=== PATIENT | female | born 2000 | race Caucasian/White ===

== ENCOUNTER 2022-01-28 18:13 | Emergency (ER) | payer MEDICAID, OTHER ==
[~2022-01-28] VITALS: Ht 187.9 cm; Wt 148.8 kg
[2022-01-28 18:45] LABS: CLARITY,URINE SL CLOUDY; COLOR,URINE DARK YELLOW
[2022-01-28 18:46] LABS: BILIRUBIN,URINE NEGATIVE (NEGATIVE); GLUCOSE, URINE (UA) NEGATIVE (NEGATIVE); KETONES,URINE NEGATIVE (NEGATIVE); LEUKOCYTE ESTERASE ,URINE NEGATIVE (NEGATIVE); NITRITE,URINE NEGATIVE (NEGATIVE); PROTEIN,URINE NEGATIVE (NEGATIVE)
[2022-01-28 18:52] LABS: BACTERIA,URINE MODERATE /HPF; CALCIUM OXALATE CRYSTALS,UR LARGE /LPF; SQUAMOUS EPITHELIAL CELL,UR 25-50 /HPF; WBC,URINE 0-2 /HPF
--- NOTE | 2022-01-28 18:58 | ED GU-Female ---
General Chief Complaint: OB > 20 WEEKS Stated Complaint: OB,CAN NOT URINATE,R SIDE ABD PAIN Nursing Triage Note: Patient reports she has had positional right sided abdominal pain for 2 days. She states she began having burning with urination last night. She states she is 7 months . Source: patient Exam Limitations: no limitations History of Present Illness Date Seen by Provider: Jan 28, 2022 Time Seen by Provider: 18:25 Initial Comments 21-year-old female patient G1, P0 at 28 weeks of gestation complaining of right side pain for the last 2 days as as an intermittent pain that getting worse with movement. Patient rated her pain 5/10 and denies anorexia, nausea and vomiting, fever or chills, diarrhea and constipation. Patient also complaining of unable to urinate since this morning and dysuria. 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 Patient complaining of dysuria and frequency. Patient denies vaginal bleeding and discharge and feels movement. Allergies and Home Medications Allergies Coded Allergies: Penicillins (Verified Allergy, Unknown, 01/28/22) clindamycin (Verified Allergy, Unknown, 01/28/22) Patient Home Medication List Home Medication List Reviewed: Yes Review of Systems Review of Systems Constitutional: no symptoms reported EENTM: no symptoms reported Respiratory: no symptoms reported Cardiovascular: no symptoms reported Gastrointestinal: see HPI Genitourinary: see HPI : Yes Expected Date of Delivery: May 01, 2022 LMP: Jul 13, 2021 Musculoskeletal: see HPI Skin: no symptoms reported Psychiatric/Neurological: No Symptoms Reported Endocrine: No Symptoms Reported Past Njgoeur-Lolbww-Jpnewm Hx Past Medical History Expected Date of Delivery: May 01, 2022 Last Menstrual Period: Jul 13, 2021 Physical Exam Vital Signs Vital Signs - First Documented 01/28/22 18:20 Temp 36.3 Pulse 94 Resp 16 B/P (MAP) 125/72 (89) Pulse Ox 97 O2 Delivery Room Air Capillary Refill : Less Than 3 Seconds Height, Weight, BMI Height: '" Weight: lbs. oz. kg; 42.00 BMI Method: General Appearance: WD/WN, no apparent distress, obese HEENT: PERRL/EOMI, normal ENT inspection Neck: non-tender, full range of motion Cardiovascular: normal peripheral pulses, regular rate, rhythm, no edema Respiratory: chest non-tender, lungs clear, normal breath sounds Gastrointestinal: normal bowel sounds, non tender, soft, no organomegaly, other (Gravid abdomen, heart rate 148, no McBurney sign or tenderness in right lower quadrant) Back: normal inspection, no CVA tenderness Neurologic/Psychiatric: alert, oriented x 3 Progress/Results/Core Measures Suspected Sepsis SIRS Temperature: Pulse: 94 Respiratory Rate: 16 Blood Pressure 125 /72 Mean: 89 Results/Orders Lab Results Laboratory Tests Test 01/28/22 18:20 Range/Units Urine Color DARK YELLOW Urine Clarity SL CLOUDY Urine pH 6.0 5-9 Urine Specific [place] >=1.030 1.016-1.022 Urine Protein NEGATIVE NEGATIVE Urine Glucose (UA) NEGATIVE NEGATIVE Urine Ketones NEGATIVE NEGATIVE Urine Nitrite NEGATIVE NEGATIVE Urine Bilirubin NEGATIVE NEGATIVE Urine Urobilinogen 0.2 < = 1.0 MG/DL Urine Leukocyte Esterase NEGATIVE NEGATIVE Urine RBC (Auto) NEGATIVE NEGATIVE Urine RBC NONE /HPF Urine WBC 0-2 /HPF Urine Squamous Epithelial Cells 25-50 H /HPF Urine Crystals PRESENT H /LPF Urine Calcium Oxalate Crystals LARGE H /LPF Urine Bacteria MODERATE H /HPF Urine Casts NONE /LPF Urine Mucus MODERATE H /LPF Urine Culture Indicated NO My Orders Orders - ALVIN BAHENA MD Ua Culture If Indicated (01/28/22 18:28) Vital Signs/I&O 01/28/22 01/28/22 18:20 19:12 Temp 36.3 36.3 Pulse 94 94 Resp 16 16 B/P (MAP) 125/72 (89) 125/72 Pulse Ox 97 97 O2 Delivery Room Air Room Air Capillary Refill : Less Than 3 Seconds Blood Pressure Mean: 89 Progress Note : Progress Note Evaluation of patient in ER showed 21-year-old female patient at 28 weeks of gestation with complaining of intermittent episodes of right-sided abdominal pain for the last 2 days with activity and decrease of urine output since this morning. Patient works out at hot weather today. Patient had unremarkable physical exam. UA showed contamination. Patient was able to urinate after drinking water in the ER. 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 Patient advised to take Tylenol as needed for pain. Patient advised to return to ER as needed Departure Impression Primary Impression: Broad ligament pain Additional Impression: Dysuria Disposition: 01 HOME, SELF-CARE Condition: Stable Departure-Patient Inst. Decision time for Depature: 19:08 Referrals: SILVIO SCHULTZ MD (PCP/Family) Primary Care Physician Patient Instructions: Dysuria, Adult (DC) Add. Discharge Instructions: Drink plenty of liquid May take Tylenol as needed for pain Follow-up with your [employer] or return to ER as needed All discharge instructions reviewed with patient and/or family. Voiced understanding. ALVIN BAHENA MD Jan 28, 2022 18:58
[2022-01-28 19:12] VITALS: BP 125/72
== END 2022-01-28 19:15 | disposition home or self-care (01) ==
LOC: ER FS 18:17
DX: O26.893 Other specified pregnancy related conditions, third trimester (principal); R30.0 Dysuria; R10.2 Pelvic and perineal pain; O99.213 Obesity complicating pregnancy, third trimester; Z3A.28 28 weeks gestation of pregnancy; Z28.310 Unvaccinated for COVID-19
CPT/HCPCS: 81000

== ENCOUNTER 2022-02-07 22:12 | Outpatient (CLI) | payer MEDICAID ==
[~2022-02-07] VITALS: Ht 183.5 cm; Wt 168.8 kg
[2022-02-07 22:28] VITALS: BP 134/64
[2022-02-07 22:30] VITALS: BP 134/64
[2022-02-07 22:47] LABS: BILIRUBIN,URINE NEGATIVE (NEGATIVE); CLARITY,URINE CLEAR; COLOR,URINE ORANGE; GLUCOSE, URINE (UA) NEGATIVE (NEGATIVE); KETONES,URINE NEGATIVE (NEGATIVE); LEUKOCYTE ESTERASE ,URINE NEGATIVE (NEGATIVE); NITRITE,URINE NEGATIVE (NEGATIVE); PH,URINE 6.5 (5-9); PROTEIN,URINE NEGATIVE (NEGATIVE)
[2022-02-07 22:56] LABS: BACTERIA,URINE MODERATE /HPF
[2022-02-07 22:59] VITALS: BP 134/64
[2022-02-07] MEDS ORDERED: LIDOCAINE 1% INJ 20 ML VIAL ONE (23:09)
[2022-02-07] MEDS ORDERED: cefTRIAXone 1,000 MG VIAL ONE (23:09)
[2022-02-07] MEDS ORDERED: CEPH500T PO (23:14)
[2022-02-07] MEDS ORDERED: cefTRIAXone 500 MG/5 ML ML IM ONE (23:15)
[2022-02-07] MEDS ORDERED: LIDOCAINE 1% INJ 20 ML VIAL INJ ONE (23:15)
[2022-02-07] MEDS ORDERED: PREN-51 PO (23:18)
[2022-02-07 23:32] VITALS: BP 130/64
--- NOTE | 2022-02-10 08:09 | Physician Query-Final Dx ---
Clinic Account Progress/Dx Physician Query: Please give diagnosis Please inclue # weeks gestation Date of Service Feb 07, 2022 at 22:12 [facility],JulFeb 10, 2022 08:09
== END 2022-02-07 23:32 ==
LOC: WSo 22:12
PROVIDERS: ATTEND Family Medicine
DX: O26.899 Other specified pregnancy related conditions, unspecified trimester (principal); R10.9 Unspecified abdominal pain; Z3A.00 Weeks of gestation of pregnancy not specified
CPT/HCPCS: 81000; 87088

== ENCOUNTER 2022-03-17 13:43 | Outpatient (CLI) | payer MEDICAID ==
[~2022-03-17] VITALS: Ht 187.9 cm; Wt 170.3 kg
[~2022-03-17 13:43] MED LIST: CEPH500T PO; PREN-51 PO
[2022-03-17 14:01] VITALS: BP 132/79
[2022-03-17 14:08] VITALS: BP 132/79
[2022-03-17 14:14] LABS: BILIRUBIN,URINE NEGATIVE (NEGATIVE); CLARITY,URINE SL CLOUDY; COLOR,URINE YELLOW; GLUCOSE, URINE (UA) NEGATIVE (NEGATIVE); KETONES,URINE NEGATIVE (NEGATIVE); LEUKOCYTE ESTERASE ,URINE TRACE (NEGATIVE); NITRITE,URINE NEGATIVE (NEGATIVE); PH,URINE 6.5 (5-9); PROTEIN,URINE NEGATIVE (NEGATIVE)
[2022-03-17 14:29] LABS: BACTERIA,URINE FEW /HPF; WBC,URINE 0-2 /HPF
[2022-03-17 14:30] VITALS: BP 136/81
[2022-03-17] MEDS ORDERED: FAMOTIDINE 20 MG (PEPCID) TABLET PO ONE ×2 (14:45)
[2022-03-17 15:00] VITALS: BP 123/76
[2022-03-17] MEDS ORDERED: HYDR-3584 PO (15:04)
[2022-03-17] MEDS ORDERED: SERT20OR PO (15:04)
[2022-03-17] MEDS ORDERED: ASPI-999 PO (15:04)
[2022-03-17] MEDS ORDERED: FOLI20CA PO (15:04)
[2022-03-17 15:16] LABS: BASOPHILS # (AUTO) 0.1 10^3/uL (0.0-0.1); BASOPHILS % (AUTO) 1 % (0-10); EOSINOPHILS # (AUTO) 0.5 10^3/uL (0.0-0.3); EOSINOPHILS % (AUTO) 4 % (0-10); HEMATOCRIT 36 % (35-52); HEMOGLOBIN 12.5 g/dL (11.5-16.0); LYMPHOCYTES # (AUTO) 2.3 X 10^3 (1.0-4.0); LYMPHOCYTES % (AUTO) 20 % (12-44); MEAN CORPUSCULAR HEMOGLOBIN 31 pg (25-34); MEAN CORPUSCULAR HGB CONC 35 g/dL (32-36); MEAN CORPUSCULAR VOLUME 87 fL (80-99); MEAN PLATELET VOLUME 11.7 fL (9.0-12.2); MONOCYTES # (AUTO) 1.1 X 10^3 (0.0-1.0); MONOCYTES % (AUTO) 10 % (0-12); NEUTROPHILS # (AUTO) 7.2 X 10^3 (1.8-7.8); NEUTROPHILS % (AUTO) 65 % (42-75); PLATELET COUNT 234 10^3/uL (130-400); WHITE BLOOD COUNT 11.1 10^3/uL (4.3-11.0)
[2022-03-17 15:21] LABS: ALBUMIN 3.4 GM/DL (3.2-4.5); POTASSIUM 3.9 MMOL/L (3.6-5.0)
[2022-03-17 15:22] LABS: CALCIUM 9.3 MG/DL (8.5-10.1)
[2022-03-17 15:23] LABS: TOTAL PROTEIN 6.5 GM/DL (6.4-8.2)
[2022-03-17 15:25] LABS: BILIRUBIN,TOTAL 0.3 MG/DL (0.1-1.0)
[2022-03-17 15:27] LABS: CREATININE SERUM 0.63 MG/DL (0.60-1.30)
[2022-03-17 15:30] VITALS: BP 124/69
[2022-03-17 15:30] LABS: URIC ACID 4.9 MG/DL (2.6-7.2)
[2022-03-17 15:50] VITALS: BP 124/69
--- NOTE | 2022-03-18 08:34 | Physician Query-Final Dx ---
Clinic Account Progress/Dx Physician Query: Please give diagnosis Please include # weeks gestation Date of Service Mar 17, 2022 at 13:43 ,JulMar 18, 2022 08:34
== END 2022-03-17 15:50 | disposition home or self-care (01) ==
LOC: WSo 13:43 → LDRP 13:43 → WSo 15:50
PROVIDERS: ATTEND Family Medicine
DX: Z34.93 Encounter for supervision of normal pregnancy, unspecified, third trimester (principal); Z3A.33 33 weeks gestation of pregnancy
CPT/HCPCS: 36415; 80053; 81000; 83615; 84550; 85025

== ENCOUNTER 2022-03-23 12:48 | Emergency (ER) | payer MEDICAID ==
[~2022-03-23] VITALS: Ht 190 cm; Wt 167.0 kg
[~2022-03-23 12:48] MED LIST changes: +ASPI-999 PO; +FOLI20CA PO; +HYDR-3584 PO; +SERT20OR PO
--- NOTE | 2022-03-23 13:07 | ED General ---
General Chief Complaint: General Problems/Pain Stated Complaint: ELEV BP; VOMITING; BRIGGS History of Present Illness Date Seen by Provider: Mar 23, 2022 Time Seen by Provider: 13:05 Initial Comments 22-year-old female who is [id number], who is 34 weeks and 4 days with SHANTELL of 05/01/22, is here with c/o elevated BP at home and abdominal discomfort for the past week. Pt stated that she vomited once. Pt also reports that she thinks the abdominal pain is cramping which occurs approx every 30 min and lasts for 10 min. Denies diarrhea, fever, SOB, cough. Allergies and Home Medications Allergies Coded Allergies: Penicillins (Verified Allergy, Unknown, 01/28/22) clindamycin (Verified Allergy, Unknown, 01/28/22) latex (Verified Allergy, Unknown, Hives, 03/17/22) Patient Home Medication List Home Medication List Reviewed: Yes Aspirin (Aspirin) 81 Mg Tab.chew, 81 MG PO DAILY, (Reported) Entered as Reported by: ORTIZ CONWAY on 03/17/22 1504 Folic Acid (Folic Acid) 20 Mg Capsule, 20 MG PO DAILY, (Reported) Entered as Reported by: ORTIZ CONWAY on 03/17/22 1504 Hydroxyzine HCl (Hydroxyzine HCl) 10 Mg Tablet, 10 MG PO DAILY, (Reported) Entered as Reported by: ORTIZ CONWAY on 03/17/22 1504 Vit #76/Iron,Carb/FA (Prenatabs Rx Tablet) 29 Mg Iron-1 Mg Tablet, 1 EACH PO DAILY, (Reported) Entered as Reported by: PAOLO KAMARA on 02/07/22 231 Sertraline HCl (Zoloft) 20 Mg/Ml Oral.conc, 20 MG PO DAILY, (Reported) Entered as Reported by: ORTIZ CONWAY on 03/17/22 1504 Discontinued Medications Cephalexin (Cephalexin) 500 Mg Tablet, 500 MG PO BID Discontinued Reason: No Longer Taking Prescribed by: PAOLO KAMARA on 02/07/22 123 Review of Systems Review of Systems Constitutional: no symptoms reported EENTM: no symptoms reported Respiratory: no symptoms reported Cardiovascular: other (elevated BP) Gastrointestinal: abdominal pain, vomiting Genitourinary: no symptoms reported : Yes Expected Date of Delivery: May 01, 2022 Musculoskeletal: no symptoms reported Skin: no symptoms reported Psychiatric/Neurological: No Symptoms Reported Hematologic/Lymphatic: No Symptoms Reported Immunological/Allergic: no symptoms reported Past Gdeodpm-Pdvbkp-Ifleoa Hx Patient Social History Tobacco Use?: No Substance use?: No Alcohol Use?: No Past Medical History Surgery/Hospitalization HX: asthma, seizures Physical Exam Vital Signs Vital Signs - First Documented 03/23/22 13:01 Temp 35.8 Pulse 104 Resp 16 B/P (MAP) 137/83 (101) Pulse Ox 98 O2 Delivery Room Air Capillary Refill : Height, Weight, BMI Height: '" Weight: lbs. oz. kg; 48.23 BMI Method: General Appearance: No Apparent Distress, WD/WN, Obese HEENT: PERRL/EOMI Neck: Full Range of Motion, Normal Inspection, Non Tender Respiratory: Chest Non Tender, Lungs Clear, Normal Breath Sounds Cardiovascular: Regular Rate, Rhythm Gastrointestinal: Normal Bowel Sounds, Non Tender, Soft Neurologic/Psychiatric: Alert, Oriented x3 Skin: Normal Color Progress/Results/Core Measures Suspected Sepsis SIRS Temperature: Pulse: Respiratory Rate: Laboratory Tests 03/23/22 13:23: White Blood Count 11.4H Blood Pressure / Mean: Laboratory Tests 03/23/22 13:23: Creatinine 0.52L, Platelet Count 214, Total Bilirubin 0.3 Results/Orders Lab Results Laboratory Tests Test 03/23/22 13:15 03/23/22 13:23 Range/Units Urine Color YELLOW Urine Clarity CLOUDY Urine pH 7.0 5-9 Urine Specific [place] 1.015 L 1.016-1.022 Urine Protein NEGATIVE NEGATIVE Urine Glucose (UA) NEGATIVE NEGATIVE Urine Ketones NEGATIVE NEGATIVE Urine Nitrite NEGATIVE NEGATIVE Urine Bilirubin NEGATIVE NEGATIVE Urine Urobilinogen 0.2 < = 1.0 MG/DL Urine Leukocyte Esterase NEGATIVE NEGATIVE Urine RBC (Auto) NEGATIVE NEGATIVE Urine RBC NONE /HPF Urine WBC 5-10 H /HPF Urine Squamous Epithelial Cells >50 H /HPF Urine Crystals NONE /LPF Urine Bacteria LARGE H /HPF Urine Casts NONE /LPF Urine Mucus NEGATIVE /LPF Urine Culture Indicated NO White Blood Count 11.4 H 4.3-11.0 10^3/uL Red Blood Count 4.05 3.80-5.11 10^6/uL Hemoglobin 12.5 11.5-16.0 g/dL Hematocrit 35 35-52 % Mean Corpuscular Volume 87 80-99 fL Mean Corpuscular Hemoglobin 31 25-34 pg Mean Corpuscular Hemoglobin Concent 36 32-36 g/dL Red Cell Distribution Width 12.5 10.0-14.5 % Platelet Count 214 130-400 10^3/uL Mean Platelet Volume 11.6 9.0-12.2 fL Immature Granulocyte % (Auto) 0 % Neutrophils (%) (Auto) 72 42-75 % Lymphocytes (%) (Auto) 18 12-44 % Monocytes (%) (Auto) 5 0-12 % Eosinophils (%) (Auto) 4 0-10 % Basophils (%) (Auto) 0 0-10 % Neutrophils # (Auto) 8.2 H 1.8-7.8 10^3/uL Lymphocytes # (Auto) 2.1 1.0-4.0 10^3/uL Monocytes # (Auto) 0.6 0.0-1.0 10^3/uL Eosinophils # (Auto) 0.4 H 0.0-0.3 10^3/uL Basophils # (Auto) 0.1 0.0-0.1 10^3/uL Immature Granulocyte # (Auto) 0.1 0.0-0.1 10^3/uL Sodium Level 134 L 135-145 MMOL/L Potassium Level 3.9 3.6-5.0 MMOL/L Chloride Level 100 98-107 MMOL/L Carbon Dioxide Level 20 L 21-32 MMOL/L Anion Gap 14 5-14 MMOL/L Blood Urea Nitrogen 8 7-18 MG/DL Creatinine 0.52 L 0.60-1.30 MG/DL Estimat Glomerular Filtration Rate 135 BUN/Creatinine Ratio 15 Glucose Level 128 H 70-105 MG/DL Calcium Level 9.2 8.5-10.1 MG/DL Corrected Calcium 9.6 8.5-10.1 MG/DL Magnesium Level 1.6 1.6-2.4 MG/DL Total Bilirubin 0.3 0.1-1.0 MG/DL Aspartate Amino Transf (AST/SGOT) 13 5-34 U/L Alanine Aminotransferase (ALT/SGPT) 14 0-55 U/L Alkaline Phosphatase 139 H 40-136 U/L Total Protein 6.6 6.4-8.2 GM/DL Albumin 3.5 3.2-4.5 GM/DL My Etienne Clifton - QUIRINO HERNANDEZ MD Ua Culture If Indicated (03/23/22 13:08) Cbc With Automated Diff (03/23/22 13:08) Comprehensive Metabolic Panel (03/23/22 13:08) Magnesium (03/23/22 13:08) Vital Signs/I&O 03/23/22 13:01 Temp 35.8 Pulse 104 Resp 16 B/P (MAP) 137/83 (101) Pulse Ox 98 O2 Delivery Room Air Capillary Refill : Progress Note : Progress Note 1. RELATED: - BP in ER is normal, and FHR is 136 - CBC/ CMP unremarkable, Alk Phos is 139 - UA negative infection, neg protein - Discussed with Dr Schultz, and will transfer pt to L & D at [facility] for monitoring, No need for ultrasound at this time. Departure Impression Primary Impression: -related complaint Disposition: XFER SHT-TRM HOSP Condition: Stable/Unchanged Transfer Transfer Reason: Exceeds level of care Time Spoke to Accepting Phy: 14:18 Transfer Progress Notes Discussed with Dr Schultz, and will transfer pt to L & D at [facility] for monitoring, No need for ultrasound at this time. Transfer Facility: [facility] Method of Transfer: Private Vehicle Departure-Patient Inst. Referrals: SILVIO SCHULTZ MD (PCP/Family) Primary Care Physician QUIRINO HERNANDEZ MD Mar 23, 2022 13:07
[2022-03-23 13:32] LABS: BASOPHILS # (AUTO) 0.1 10^3/uL (0.0-0.1); BASOPHILS % (AUTO) 0 % (0-10); EOSINOPHILS # (AUTO) 0.4 10^3/uL (0.0-0.3); EOSINOPHILS % (AUTO) 4 % (0-10); HEMATOCRIT 35 % (35-52); HEMOGLOBIN 12.5 g/dL (11.5-16.0); LYMPHOCYTES # (AUTO) 2.1 10^3/uL (1.0-4.0); LYMPHOCYTES % (AUTO) 18 % (12-44); MEAN CORPUSCULAR HEMOGLOBIN 31 pg (25-34); MEAN CORPUSCULAR HGB CONC 36 g/dL (32-36); MEAN CORPUSCULAR VOLUME 87 fL (80-99); MEAN PLATELET VOLUME 11.6 fL (9.0-12.2); MONOCYTES # (AUTO) 0.6 10^3/uL (0.0-1.0); MONOCYTES % (AUTO) 5 % (0-12); NEUTROPHILS # (AUTO) 8.2 10^3/uL (1.8-7.8); NEUTROPHILS % (AUTO) 72 % (42-75); PLATELET COUNT 214 10^3/uL (130-400); WHITE BLOOD COUNT 11.4 10^3/uL (4.3-11.0)
[2022-03-23 13:33] LABS: BILIRUBIN,URINE NEGATIVE (NEGATIVE); COLOR,URINE YELLOW; GLUCOSE, URINE (UA) NEGATIVE (NEGATIVE); KETONES,URINE NEGATIVE (NEGATIVE); LEUKOCYTE ESTERASE ,URINE NEGATIVE (NEGATIVE); NITRITE,URINE NEGATIVE (NEGATIVE); PROTEIN,URINE NEGATIVE (NEGATIVE)
[2022-03-23 13:37] LABS: BACTERIA,URINE LARGE /HPF; CLARITY,URINE CLOUDY; SQUAMOUS EPITHELIAL CELL,UR >50 /HPF
[2022-03-23 13:52] LABS: BILIRUBIN,TOTAL 0.3 MG/DL (0.1-1.0); CALCIUM 9.2 MG/DL (8.5-10.1); CREATININE SERUM 0.52 MG/DL (0.60-1.30); MAGNESIUM 1.6 MG/DL (1.6-2.4); POTASSIUM 3.9 MMOL/L (3.6-5.0)
[2022-03-23 13:53] LABS: ALBUMIN 3.5 GM/DL (3.2-4.5); TOTAL PROTEIN 6.6 GM/DL (6.4-8.2)
[2022-03-23 14:38] VITALS: BP 156/118
== END 2022-03-23 14:38 | disposition other institution (70) ==
LOC: EDUNIT# 12:48 → ER FS 12:52
DX: O26.893 Other specified pregnancy related conditions, third trimester (principal); R10.9 Unspecified abdominal pain; R11.10 Vomiting, unspecified; Z91.040 Latex allergy status; Z28.310 Unvaccinated for COVID-19; Z3A.34 34 weeks gestation of pregnancy
CPT/HCPCS: 36415; 80053; 81000; 83735; 85025; 99284

== ENCOUNTER 2022-03-23 16:13 | Outpatient (CLI) | payer MEDICAID ==
[~2022-03-23] VITALS: Ht 190.5 cm; Wt 171.6 kg
[2022-03-23] VITALS (7 sets, daily range): BP systolic 94–114; BP diastolic 50–63
[2022-03-23 16:59] LABS: BILIRUBIN,URINE NEGATIVE (NEGATIVE); CLARITY,URINE SL CLOUDY; COLOR,URINE YELLOW; GLUCOSE, URINE (UA) NEGATIVE (NEGATIVE); KETONES,URINE NEGATIVE (NEGATIVE); LEUKOCYTE ESTERASE ,URINE NEGATIVE (NEGATIVE); NITRITE,URINE NEGATIVE (NEGATIVE); PH,URINE 5.5 (5-9); PROTEIN,URINE NEGATIVE (NEGATIVE)
[2022-03-23 17:06] LABS: BACTERIA,URINE FEW /HPF; WBC,URINE RARE /HPF
[2022-03-23] MEDS ORDERED: ACETAMINOPHEN 500 MG TAB (TYLENOL) PO ONE (17:45)
[2022-03-23] MEDS ORDERED: ACETAMINOPHEN 500 MG TAB (TYLENOL) ONE (17:55)
--- NOTE | 2022-03-24 08:18 | Physician Query-Final Dx ---
Clinic Account Progress/Dx Physician Query: Please give diagnosis Please include # weeks gestation Date of Service Mar 23, 2022 at 16:13 MATT,JulMar 24, 2022 08:18
== END 2022-03-23 18:00 | disposition home or self-care (01) ==
LOC: WSo 16:13 → WS 16:13 → WSo 18:00
PROVIDERS: ATTEND Family Medicine
DX: O13.9 Gestational [pregnancy-induced] hypertension without significant proteinuria, unspecified trimester (principal); Z3A.00 Weeks of gestation of pregnancy not specified
CPT/HCPCS: 81000

== ENCOUNTER 2022-03-27 15:45 | Outpatient (CLI) | payer MEDICAID ==
[~2022-03-27] VITALS: Ht 190.5 cm; Wt 172.4 kg
[2022-03-27 16:16] LABS: BILIRUBIN,URINE NEGATIVE (NEGATIVE); CLARITY,URINE CLEAR; COLOR,URINE YELLOW; GLUCOSE, URINE (UA) NEGATIVE (NEGATIVE); KETONES,URINE NEGATIVE (NEGATIVE); LEUKOCYTE ESTERASE ,URINE NEGATIVE (NEGATIVE); NITRITE,URINE NEGATIVE (NEGATIVE); PROTEIN,URINE NEGATIVE (NEGATIVE)
[2022-03-27 16:24] LABS: BACTERIA,URINE TRACE /HPF; WBC,URINE 0-2 /HPF
[2022-03-27 16:33] VITALS: BP 124/78
--- NOTE | 2022-03-28 08:30 | Physician Query-Final Dx ---
Clinic Account Progress/Dx Physician Query: Please give diagnosis Please include # weeks gestation Date of Service Mar 27, 2022 at 15:45 MATT,JulMar 28, 2022 08:30
[2022-03-29] MEDS ORDERED: LEVE500T99 PO (11:29)
== END 2022-03-27 17:23 | disposition home or self-care (01) ==
LOC: WSo 15:45 → LDRP 15:47 → WSo 17:23
PROVIDERS: ATTEND Family Medicine
DX: Z34.90 Encounter for supervision of normal pregnancy, unspecified, unspecified trimester (principal); Z3A.00 Weeks of gestation of pregnancy not specified
CPT/HCPCS: 81000

== ENCOUNTER → 2022-03-28 | Outpatient (CLI) | payer MEDICAID ==
[~2022-03-28] MED LIST changes: +LEVE500T99 PO
[2022-03-28 13:05] LABS: BASOPHILS % (AUTO) 0 % (0-10); EOSINOPHILS # (AUTO) 0.4 10^3/uL (0.0-0.3); EOSINOPHILS % (AUTO) 3 % (0-10); HEMATOCRIT 37 % (35-52); HEMOGLOBIN 12.8 g/dL (11.5-16.0); LYMPHOCYTES # (AUTO) 1.9 10^3/uL (1.0-4.0); LYMPHOCYTES % (AUTO) 18 % (12-44); MEAN CORPUSCULAR HEMOGLOBIN 31 pg (25-34); MEAN CORPUSCULAR HGB CONC 35 g/dL (32-36); MEAN CORPUSCULAR VOLUME 88 fL (80-99); MEAN PLATELET VOLUME 11.7 fL (9.0-12.2); MONOCYTES # (AUTO) 0.5 10^3/uL (0.0-1.0); MONOCYTES % (AUTO) 5 % (0-12); NEUTROPHILS # (AUTO) 7.7 10^3/uL (1.8-7.8); NEUTROPHILS % (AUTO) 74 % (42-75); PLATELET COUNT 228 10^3/uL (130-400); WHITE BLOOD COUNT 10.5 10^3/uL (4.3-11.0)
[2022-03-28 13:29] LABS: ALBUMIN 3.6 GM/DL (3.2-4.5); BILIRUBIN,TOTAL 0.2 MG/DL (0.1-1.0); CALCIUM 9.5 MG/DL (8.5-10.1); CREATININE SERUM 0.63 MG/DL (0.60-1.30); TOTAL PROTEIN 6.7 GM/DL (6.4-8.2)
[2022-03-28 15:23] LABS: URIC ACID 5.5 MG/DL (2.6-7.2)
== END ==
LOC: LAB FS 12:45
PROVIDERS: ATTEND Family Medicine
DX: O16.3 Unspecified maternal hypertension, third trimester (principal); Z3A.00 Weeks of gestation of pregnancy not specified
CPT/HCPCS: 36415; 80053; 82570; 83615; 84156; 84550; 85025

== ENCOUNTER 2022-04-10 16:59 | Observation (INO) | payer MEDICAID ==
[2022-04-10] VITALS (10 sets, daily range): BP systolic 116–146; BP diastolic 53–84
[~2022-04-10] VITALS: Ht 188 cm; Wt 172.5 kg
[2022-04-10] MEDS ORDERED: LACTATED RINGERS 1,000 ML IV SCH (17:45)
[2022-04-10] MEDS: D5 LR IV SOLUTION 1,000 ML IV SCH (19:07)
[2022-04-10] MEDS ORDERED: ACETAMINOPHEN 500 MG TAB (TYLENOL) ONE (19:57)
[2022-04-10] MEDS ORDERED: NS (IVPB) 100 ML ONE (20:35)
[2022-04-10] MEDS: ACETAMINOPHEN 500 MG TAB (TYLENOL) PO PRN (20:44)
[2022-04-11] MEDS: D5 LR IV SOLUTION 1,000 ML IV SCH (03:39)
[2022-04-11 03:40] VITALS: BP 118/58
[2022-04-11 08:10] VITALS: BP 117/64
--- NOTE | 2022-04-11 09:23 | Short Stay Summary ---
EFREN SORENSEN 04/11/22 0923: HPI History of Present Illness: Chaparrita is a 22y at 37w 1 d with a pmh of epilepsy who was sent over for observation last night after OB follow up visit yesterday. She states that at her OB visit yesterday she was told there was decreased movement and she was sent over to be monitored. She states she had HTN in office yesterday. Today she thinks she is having contractions and 7/10 abdominal pain that radiates to her back. Her contractions are every 30 minutes and last about 1 minute. Tylenol is helping manage her contraction pain. Source: patient Exam Limitations: no limitations Date seen by provider: Apr 11, 2022 Time Seen by Provider: 09:21 Attending Physician Melanie Jenkins MD PCP Admitting Physician: Melanie Jenkins MD Attending Physician: Melanie Jenkins MD Consult Date of Admission Apr 10, 2022 at 17:44 Home Medications Home Medications Reviewed patient Home Medication Reconciliation performed by pharmacy medication reconciliations police service technician and/or nursing. Patients Allergies have been reviewed. Allergies Coded Allergies: Penicillins (Verified Allergy, Unknown, 01/28/22) clindamycin (Verified Allergy, Unknown, 01/28/22) latex (Verified Allergy, Unknown, Hives, 03/17/22) SGG-Rmsemx-Vlitjc Hx Patient Social History Number of Children: 0 Smoking Status: Never a Smoker 2nd Hand Smoke Exposure: No Alcohol Use?: No Immunizations Up To Date Tetanus Booster (TDap): Less than 5yrs Influenza Vaccine Up-to-Date: No; Not Current Past Medical History Seizures Depression Anxiety PTSD Family Medical History Family Medical Hx Sister delivered Mom had preecclampsia Review of Systems ([facility]) Constitutional: No chills, No diaphoresis, No dizziness, No fever, No weakness EENTM: no symptoms reported Respiratory: no symptoms reported Cardiovascular: no symptoms reported Gastrointestinal: nausea (nauseas when she takes her oral seizure medicine) Genitourinary: no symptoms reported : Yes LMP: Jul 13, 2021 Musculoskeletal: back pain Skin: no symptoms reported Psychiatric/Neurological: No Symptoms Reported Physical Exam-([facility]) Physical Exam Vital Signs VS - Last 72 Hours, by Label 9/29/22 9/29/22 9/29/22 9/29/22 17:11 17:22 17:28 17:30 Temp 36.5 36.5 Pulse 90 90 82 82 Resp 20 20 18 18 B/P (MAP) 140/84 (102) 129/76 (93) 129/76 (93) Pulse Ox 100 100 100 O2 Delivery Room Air Room Air Room Air Room Air 04/10/22 04/10/22 04/10/22 04/10/22 17:43 17:55 18:00 19:25 Temp 36.5 36.5 Pulse 81 82 82 93 Resp 18 18 18 18 B/P (MAP) 146/74 (98) 119/70 (86) 124/78 (93) Pulse Ox 100 100 O2 Delivery Room Air Room Air Room Air Room Air 04/10/22 04/10/22 04/11/22 21:00 23:20 03:40 Temp 36.2 36.4 36.0 Pulse 91 76 76 Resp 18 18 18 B/P (MAP) 129/69 (89) 116/53 (74) 118/58 (78) Pulse Ox 96 99 O2 Delivery Room Air Room Air Room Air Capillary Refill : Less Than 3 Seconds General Appearance: WD/WN, no apparent distress HEENT: PERRL/EOMI Neck: supple, normal inspection Respiratory: lungs clear, normal breath sounds, no respiratory distress Cardiovascular: regular rate, rhythm Gastrointestinal: No guarding, No rebound; tenderness (diffuse tenderness) Extremities: pedal edema (trace) 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 37 weeks gestation - FHR wnl, variable 130s to 140s - BPP done, amniotic fluid index 15.8. EGA 37w4d, FHR 139 - NST ordered 2. Seizures - Currently on IV levitriacetam - continue oral dose on discharge 3. Depression/Anxiety - Continue Sertraline and Hydroxyzine TANYA JOLLEY DO 04/16/22 0552: Home Medications Allergies Coded Allergies: Penicillins (Verified Allergy, Unknown, 01/28/22) clindamycin (Verified Allergy, Unknown, 01/28/22) latex (Verified Allergy, Unknown, Hives, 03/17/22) Short Stay Diagnosis Discharge Diagnosis-Short Stay Admission Diagnosis 37 week GA Seizure Disorder Contractions Final Discharge Diagnosis 37 week GA - reassuring tracing Seizure Disorder Contractions, not in active labor Conclusion Plan Patient not in active labor and has reassuring testing. DC to home. Follow up with Dr. Jenkins next week. Assessment/Plan Assessment/Plan Admission Status: Observation Supervisory-Addendum Brief Verification & Attestation Participated in pt care: history, physical Personally performed: exam, history, supervision of care Care discussed with: Medical Student Procedures: n/a Verification and Attestation of Medical Student E/M Service A medical student performed and documented this service in my presence. I reviewed and verified all information documented by the medical student and made modifications to such information, when appropriate. I personally performed the physical exam and medical decision making. Tanya Jolley, Apr 16, 2022,05:53 EFREN SORENSEN Apr 11, 2022 09:23 TANYA JOLLEY DO Apr 16, 2022 05:52
[2022-04-11] MEDS: ACETAMINOPHEN 500 MG TAB (TYLENOL) PO PRN (10:30)
--- NOTE | 2022-04-11 11:58 | Diagnostic Imaging Report ---
INDICATION: FAILED BPP IN OFFICE ON 04/10, FOLLOW UP TECHNIQUE: The fetus was observed for purposes of a biophysical profile evaluation. FINDINGS: Intrauterine is currently in a cephalic presentation. cardiac activity at 125 beats per minute. Normal amount of amniotic fluid with an index at 9.3 cm. Biophysical Profile Scoring: breathin Body movement: 2 tone: 2 Amniotic fluid: 2 Total BPP Score: 8/8 IMPRESSION: 1. Normal biophysical profile score. Dictated by: Dictated on workstation # [id number]
== END 2022-04-11 11:49 | disposition home or self-care (01) ==
LOC: WSo 16:59 → LDRP 16:59 → UNDOADMOB 17:44 → LDRP 17:44 → WSo 17:44 → LDRP 04-11 12:10 → WSo 04-11 12:10 → UNDODISOB 04-11 12:15 → EDSTATUS 04-14 15:39
PROVIDERS: ADMIT Family Medicine; ATTEND Family Medicine
DX: O76 Abnormality in fetal heart rate and rhythm complicating labor and delivery (principal); Z3A.37 37 weeks gestation of pregnancy; O99.353 Diseases of the nervous system complicating pregnancy, third trimester; R56.9 Unspecified convulsions; O99.343 Other mental disorders complicating pregnancy, third trimester; F32.A Depression, unspecified; F41.9 Anxiety disorder, unspecified; Z79.899 Other long term (current) drug therapy; O47.9 False labor, unspecified
CPT/HCPCS: 76819; 96361; 96374; 96376; G0378

== ENCOUNTER 2022-04-18 16:06 | Outpatient (CLI) | payer MEDICAID ==
[~2022-04-18] VITALS: Ht 187.6 cm; Wt 176.4 kg
[2022-04-18 16:20] VITALS: BP 146/86
[2022-04-18 16:30] VITALS: BP 146/86
[2022-04-18 16:49] LABS: BILIRUBIN,URINE NEGATIVE (NEGATIVE); CLARITY,URINE SL CLOUDY; COLOR,URINE YELLOW; GLUCOSE, URINE (UA) NEGATIVE (NEGATIVE); KETONES,URINE NEGATIVE (NEGATIVE); LEUKOCYTE ESTERASE ,URINE NEGATIVE (NEGATIVE); NITRITE,URINE NEGATIVE (NEGATIVE); PROTEIN,URINE NEGATIVE (NEGATIVE)
[2022-04-18 17:00] VITALS: BP 146/81
[2022-04-18 17:01] LABS: BACTERIA,URINE TRACE /HPF; SQUAMOUS EPITHELIAL CELL,UR 0-2 /HPF; WBC,URINE RARE /HPF
[2022-04-18 17:40] VITALS: BP 146/86
[2022-04-18 18:00] VITALS: BP 154/93
[2022-04-18 18:30] VITALS: BP 130/83
--- NOTE | 2022-04-21 08:56 | Physician Query-Final Dx ---
Clinic Account Progress/Dx Physician Query: Please give diagnosis Please include # weeks gestation Date of Service Apr 18, 2022 at 16:06 MATT,JulApr 21, 2022 08:56
== END 2022-04-18 19:35 | disposition home or self-care (01) ==
LOC: LDRP 16:06 → WSo 16:06
PROVIDERS: ATTEND Family Medicine
DX: O62.9 Abnormality of forces of labor, unspecified (principal); O26.893 Other specified pregnancy related conditions, third trimester; R11.0 Nausea; Z3A.38 38 weeks gestation of pregnancy
CPT/HCPCS: 81000; 99213

== ENCOUNTER 2022-04-23 19:41 | Inpatient (IN) | payer MEDICAID ==
[~2022-04-23] VITALS: Ht 74 cm; Wt 176.0 kg
[2022-04-23 19:00] VITALS: BP 152/96
[2022-04-23] MEDS ORDERED: LIDOCAINE/EPI 2% 1:200,00 (XYLOCAINE) 10 ML VIAL INJ PRN (20:15)
[2022-04-23] MEDS ORDERED: MINERAL OIL 30 ML UDC TOP PRN (20:15)
[2022-04-23] MEDS ORDERED: NS IV 1000 ML 1,000 ML IV SCH (20:15)
[2022-04-23] MEDS ORDERED: TERBUTALINE INJ 1 MG/ML (BRETHINE) AMP SC PRN (20:15)
[2022-04-23 20:18] LABS: BASOPHILS % (AUTO) 0 % (0-10); EOSINOPHILS # (AUTO) 0.3 10^3/uL (0.0-0.3); EOSINOPHILS % (AUTO) 3 % (0-10); HEMATOCRIT 35 % (35-52); HEMOGLOBIN 12.4 g/dL (11.5-16.0); LYMPHOCYTES # (AUTO) 2.7 10^3/uL (1.0-4.0); LYMPHOCYTES % (AUTO) 24 % (12-44); MEAN CORPUSCULAR HEMOGLOBIN 31 pg (25-34); MEAN CORPUSCULAR HGB CONC 35 g/dL (32-36); MEAN CORPUSCULAR VOLUME 87 fL (80-99); MEAN PLATELET VOLUME 12.5 fL (9.0-12.2); MONOCYTES % (AUTO) 9 % (0-12); NEUTROPHILS % (AUTO) 63 % (42-75); PLATELET COUNT 223 10^3/uL (130-400); WHITE BLOOD COUNT 11.1 10^3/uL (4.3-11.0)
[2022-04-23] MEDS ORDERED: NS IV 1000 ML 1,000 ML ONE (20:21)
[2022-04-23 20:27] LABS: BILIRUBIN,URINE NEGATIVE (NEGATIVE); CLARITY,URINE SL CLOUDY; COLOR,URINE YELLOW; GLUCOSE, URINE (UA) NEGATIVE (NEGATIVE); KETONES,URINE NEGATIVE (NEGATIVE); LEUKOCYTE ESTERASE ,URINE TRACE (NEGATIVE); NITRITE,URINE NEGATIVE (NEGATIVE); PROTEIN,URINE NEGATIVE (NEGATIVE)
[2022-04-23 20:36] LABS: ALBUMIN 3.4 GM/DL (3.2-4.5)
[2022-04-23 20:37] LABS: CALCIUM 9.1 MG/DL (8.5-10.1)
[2022-04-23 20:38] LABS: TOTAL PROTEIN 6.6 GM/DL (6.4-8.2)
[2022-04-23 20:40] LABS: BILIRUBIN,TOTAL 0.3 MG/DL (0.1-1.0)
[2022-04-23 20:42] LABS: CREATININE SERUM 0.63 MG/DL (0.60-1.30)
[2022-04-23 20:49] LABS: BACTERIA,URINE LARGE /HPF
[2022-04-23] MEDS ORDERED: D5 LR IV SOLUTION 1,000 ML IV ONE (21:08)
[2022-04-23] MEDS ORDERED: NS (IVPB) 100 ML ONE (21:08)
[2022-04-23 21:31] VITALS: BP 137/63
[2022-04-23] MEDS: D5 LR IV SOLUTION 1,000 ML IV SCH (21:51)
[2022-04-23] MEDS: CATHETER FLUSH 10 ML SYR IV SCH (22:00)
[2022-04-23 22:29] VITALS: BP 121/78
[2022-04-24] VITALS (58 sets, daily range): BP systolic 101–143; BP diastolic 56–97
[2022-04-24] MEDS ORDERED: ACETAMINOPHEN 500 MG TAB (TYLENOL) ONE (02:06)
[2022-04-24] MEDS: ACETAMINOPHEN 500 MG TAB (TYLENOL) PO PRN ×3 (02:11→15:12)
[2022-04-24] MEDS: CATHETER FLUSH 10 ML SYR IV SCH (05:23)
[2022-04-24] MEDS: D5 LR IV SOLUTION 1,000 ML IV SCH ×3 (05:23→20:10)
[2022-04-24] MEDS: OXYTOCIN PRE-MIX DRIP 500 ML IV SCH (12:18)
--- NOTE | 2022-04-24 12:22 | History & Physical-OB ---
OB - Chief Complaint & HPI Date/Time Date of Admission: Date of Admission: Apr 23, 2022 at 19:41 Date seen by a Provider: Apr 24, 2022 Time Seen by a Provider: 12:18 Chief Complaint/History OB-Reason for Admission/Chief: Induction of Labor Hx : 3 Hx Para: 0 Expected Date of Delivery: May 01, 2022 Gestational Age in Weeks: 39 Gestational Age in Days: 0 Indication for induction: other (GHTN) History of Labs O+, Ab neg, Rub Imm HIV/RPR/HepB/C NR Normal 1 hr GTT GBS neg Allergies and Home Medications Allergies Coded Allergies: Penicillins (Verified Allergy, Unknown, 01/28/22) clindamycin (Verified Allergy, Unknown, 01/28/22) latex (Verified Allergy, Unknown, Hives, 03/17/22) Patient Home Medication List Home Medication List Reviewed: Yes Aspirin (Aspirin) 81 Mg Tab.chew, 81 MG PO DAILY, (Reported) Entered as Reported by: ORTIZ CONWAY on 03/17/22 1504 Folic Acid (Folic Acid) 20 Mg Capsule, 20 MG PO DAILY, (Reported) Entered as Reported by: ORTIZ CONWAY on 03/17/22 1504 Hydroxyzine HCl (Hydroxyzine HCl) 10 Mg Tablet, 10 MG PO DAILY, (Reported) Entered as Reported by: ORTIZ CONWAY on 03/17/22 1504 Levetiracetam (Keppra) 500 Mg Tablet, 500 MG PO DAILY Prescribed by: CELSA WTAKINS on 03/29/22 1129 Vit #76/Iron,Carb/FA (Prenatabs Rx Tablet) 29 Mg Iron-1 Mg Tablet, 1 EACH PO DAILY, (Reported) Entered as Reported by: PAOLO KAMARA on 02/07/22 2318 Sertraline HCl (Zoloft) 20 Mg/Ml Oral.conc, 20 MG PO DAILY, (Reported) Entered as Reported by: ORTIZ CONWAY on 03/17/22 1504 OB - History Hx of Present Care: Yes Ultrasounds: Normal mid trimester US Obstetrical Complications: Gestational Hypertension Medical Complications: None Information Induced Hypertension: Yes Maternal Gestational Diabetes: No Obstetrical History Hx : 3 Hx Para: 0 Number of Living Children: 0 Patient Past Medical History Seizure D/o Social History/Family History Alcohol Use: Denies Use 2nd Hand Smoke Exposure: No Immunizations Influenza Vaccine Up-to-Date: No; Not Current Hepatitis A: Yes Hepatitis B: Yes Tetanus Booster (TDap): Less than 5yrs Rubella: immune RPR/VDRL: Negative GBS Status: Negative HBsAG: Negative OB - Admission Exam Physical Exam Vitals: Vital Signs 04/24/22 09:25 Temp 36.2 Pulse 76 Resp 22 B/P (MAP) 112/58 (76) Pulse Ox 98 O2 Delivery Room Air HEENT: NCAT Lungs: Clear Abdomen: Gravid Cervical Dilatation: 1cm Effacement: 100% Station: -3 Membranes: Intact Accelerations: Accelerations Present Decelerations: No Decelerations Field Scout Variability: Average (6-25) Contractions on Admission: < 5 Minutes Apart Intensity: Moderate Lassiter Scoring Tool (Modified) Dilation (cm): 1-2cm (1) Effacement (%): 51-79% (2) Descent/Station: -2 (1) Cervix Consistency: Medium(1) Cervix Position: Posterior (0) Labs Laboratory Tests Test 04/23/22 19:00 04/23/22 19:50 Range/Units Urine Color YELLOW Urine Clarity SL CLOUDY Urine pH 6.0 5-9 Urine Specific [place] >=1.030 1.016-1.022 Urine Protein NEGATIVE NEGATIVE Urine Glucose (UA) NEGATIVE NEGATIVE Urine Ketones NEGATIVE NEGATIVE Urine Nitrite NEGATIVE NEGATIVE Urine Bilirubin NEGATIVE NEGATIVE Urine Urobilinogen 0.2 < = 1.0 MG/DL Urine Leukocyte Esterase TRACE H NEGATIVE Urine RBC (Auto) NEGATIVE NEGATIVE Urine RBC NONE /HPF Urine WBC 5-10 H /HPF Urine Squamous Epithelial Cells 2-5 /HPF Urine Renal Epithelial Cells NONE /HPF Urine Crystals NONE /LPF Urine Bacteria LARGE H /HPF Urine Casts NONE /LPF Urine Mucus NEGATIVE /LPF Urine Culture Indicated YES Urine Creatinine 122 30-125 MG/DL Urine Protein/Creatinine Ratio 0.13 White Blood Count 11.1 H 4.3-11.0 10^3/uL Red Blood Count 4.07 3.80-5.11 10^6/uL Hemoglobin 12.4 11.5-16.0 g/dL Hematocrit 35 35-52 % Mean Corpuscular Volume 87 80-99 fL Mean Corpuscular Hemoglobin 31 25-34 pg Mean Corpuscular Hemoglobin Concent 35 32-36 g/dL Red Cell Distribution Width 12.7 10.0-14.5 % Platelet Count 223 130-400 10^3/uL Mean Platelet Volume 12.5 H 9.0-12.2 fL Immature Granulocyte % (Auto) 0 % Neutrophils (%) (Auto) 63 42-75 % Lymphocytes (%) (Auto) 24 12-44 % Monocytes (%) (Auto) 9 0-12 % Eosinophils (%) (Auto) 3 0-10 % Basophils (%) (Auto) 0 0-10 % Neutrophils # (Auto) 7.0 1.8-7.8 10^3/uL Lymphocytes # (Auto) 2.7 1.0-4.0 10^3/uL Monocytes # (Auto) 1.0 0.0-1.0 10^3/uL Eosinophils # (Auto) 0.3 0.0-0.3 10^3/uL Basophils # (Auto) 0.0 0.0-0.1 10^3/uL Immature Granulocyte # (Auto) 0.0 0.0-0.1 10^3/uL Sodium Level 134 L 135-145 MMOL/L Potassium Level 4.0 3.6-5.0 MMOL/L Chloride Level 105 98-107 MMOL/L Carbon Dioxide Level 21 21-32 MMOL/L Anion Gap 8 5-14 MMOL/L Blood Urea Nitrogen 6 L 7-18 MG/DL Creatinine 0.63 0.60-1.30 MG/DL Estimat Glomerular Filtration Rate 129 BUN/Creatinine Ratio 10 Glucose Level 85 70-105 MG/DL Calcium Level 9.1 8.5-10.1 MG/DL Corrected Calcium 9.6 8.5-10.1 MG/DL Total Bilirubin 0.3 0.1-1.0 MG/DL Aspartate Amino Transf (AST/SGOT) 15 5-34 U/L Alanine Aminotransferase (ALT/SGPT) 16 0-55 U/L Alkaline Phosphatase 143 H 40-136 U/L Total Protein 6.6 6.4-8.2 GM/DL Albumin 3.4 3.2-4.5 GM/DL OB - Assessment/Plan/Diagnosis Assessment Assessment: induction of labor Admission Dx Third Trimester 39 week gestation GHTN Seizure D/c Obesity in Admission Status: Inpatient Order (span 2 midnights) Reason for Inpatient Admission: IOL Plan Other Plan 22 yo @ 39.0 wga here for IOL for GHTN Plan -Cytotec protocol - GBS neg - Expectant management SILVIO SCHULTZ MD Apr 24, 2022 12:22
[2022-04-24] MEDS ORDERED: fentaNYL 2 mcg/ml BUPIVA 0.125 100 ML ONE (16:14)
[2022-04-24] MEDS ORDERED: LIDOCAINE PF 2% 5 ML (XYLOCAINE) VIAL ONE (17:31)
[2022-04-24] MEDS ORDERED: fentaNYL INJ 100 MCG/2 ML AMP ONE (17:31)
[2022-04-24] MEDS: fentaNYL 2 mcg/ml BUPIVA 0.125 100 ML EPI SCH (18:10)
[2022-04-24] MEDS ORDERED: diphenhydrAMINE 50 MG/ML INJ (BENADRYL) IV PRN (18:30)
[2022-04-24] MEDS ORDERED: METOCLOPRAMIDE INJ 10 MG/2 ML (REGLAN) IV PRN (18:30)
[2022-04-24] MEDS ORDERED: ONDANSETRON 4 MG/2 ML (SDV) Z0FRAN IV PRN (18:30)
[2022-04-24] MEDS ORDERED: LACTATED RINGERS 1,000 ML IV SCH (18:30)
[2022-04-24] MEDS ORDERED: NALOXONE 0.4 MG/ML 1 ML (NARCAN) VIAL IV PRN ×2 (18:30)
--- NOTE | 2022-04-24 21:25 | Labor Progress Note ---
Labor Progress Note Labor Progress Note Date Seen by Provider: Apr 24, 2022 Time Seen by Provider: 21:20 Subjective: Pt denies complaints. Feeling much better since having epidural placed Objective: /- Assessment/Plan: Chaparrita Bautista is a (22 /Para 3 / 0,Gestational Age (wks)39.0 here for IOL for GHTN CEFM/TOCO Continue pitocin protocol Anesthesia: epidural in place and working well GBS neg AROM 2119, clear fluid GHTN: blood pressures have been well controlled Anticipate vaginal delivery. Vitals - Labs Vital Signs - I&O Vital Signs Date Time Temp Pulse Resp B/P (MAP) Pulse Ox O2 Delivery O2 Flow Rate FiO2 04/24/22 19:45 36.1 80 20 127/77 (94) 100 Room Air 04/24/22 19:30 89 125/77 (93) 100 Room Air 04/24/22 19:15 76 129/76 (93) 98 Room Air 04/24/22 19:00 77 18 135/72 (93) 99 Room Air 04/24/22 18:45 83 18 132/67 (88) 100 Room Air 04/24/22 18:40 67 18 134/70 (91) 99 Room Air 04/24/22 18:36 77 18 137/77 (97) 100 Room Air 04/24/22 18:32 76 18 143/74 (97) 100 Room Air 04/24/22 18:30 81 18 129/88 (102) 100 Room Air 04/24/22 18:25 70 18 136/76 (96) 100 Room Air 04/24/22 18:20 76 18 142/78 (99) 100 Room Air 04/24/22 18:16 85 18 133/74 (93) 100 Room Air 04/24/22 18:12 78 18 129/67 (87) 100 Room Air 04/24/22 18:08 77 18 135/62 (86) 100 Room Air 04/24/22 18:04 81 18 122/69 (86) 98 Room Air 04/24/22 18:02 84 18 125/70 (88) 97 Room Air 04/24/22 18:00 80 18 126/68 (87) 97 Room Air 04/24/22 17:45 76 18 122/77 (92) 98 Room Air 10/13/22 17:30 70 18 138/78 (98) Room Air 04/24/22 17:15 71 18 132/74 (93) Room Air 04/24/22 17:00 36.6 88 18 131/97 (108) Room Air 04/24/22 16:45 76 18 114/62 (79) Room Air 04/24/22 16:15 71 18 127/85 (99) Room Air 04/24/22 16:05 69 18 108/59 (75) Room Air 04/24/22 15:45 78 18 124/74 (91) Room Air 04/24/22 15:30 82 18 139/86 (103) Room Air 04/24/22 15:15 78 18 128/81 (97) Room Air 04/24/22 15:00 76 18 130/82 (98) Room Air 04/24/22 14:55 66 18 130/75 (93) Room Air 04/24/22 14:30 75 18 103/59 (74) Room Air 04/24/22 14:15 68 18 116/60 (78) Room Air 04/24/22 14:00 36.5 71 18 107/58 (74) Room Air 04/24/22 13:45 75 18 133/76 (95) Room Air 04/24/22 13:35 74 18 139/78 (98) Room Air 04/24/22 13:15 79 18 125/79 (94) Room Air 04/24/22 13:00 78 18 131/81 (98) Room Air 04/24/22 12:45 75 18 137/80 (99) 98 Room Air 04/24/22 12:32 75 18 129/84 (99) 98 Room Air 04/24/22 12:15 36.4 78 20 140/91 (107) 98 Room Air 04/24/22 09:25 36.2 76 22 112/58 (76) 98 Room Air 04/24/22 03:34 36.1 82 22 128/62 (84) 98 Room Air 04/24/22 00:40 36.2 76 20 112/57 (75) Room Air 04/23/22 22:29 70 121/78 (92) 04/23/22 21:31 80 137/63 (87) I & O 04/24/22 07:00 Intake Total 2105 ml Balance 2105 ml Labs Microbiology 04/23/22 Urine Culture - Final, Complete Gram Pos Mixed Bacterial Shivani SILVIO SCHULTZ MD Apr 24, 2022 21:25
[2022-04-25] VITALS (18 sets, daily range): BP systolic 114–146; BP diastolic 60–82
[2022-04-25] MEDS: fentaNYL 2 mcg/ml BUPIVA 0.125 100 ML EPI SCH (00:07)
[2022-04-25] MEDS: CATHETER FLUSH 10 ML SYR IV SCH (00:26)
[2022-04-25] MEDS: OXYTOCIN PRE-MIX DRIP 500 ML IV SCH ×3 (02:14→02:30)
--- NOTE | 2022-04-25 02:26 | OB Labor & Delivery Record ---
Vag Delivery Note Vag Delivery Note Date of Delivery: 04/25/22 Preoperative Diagnosis: Chaparrita Bautista is a (22 /Para 3 / 0,Gestational Age (wks)39.1 here for IOL for GHTN Postoperative Diagnosis: Same Surgeon: SILVIO SCHULTZ MD Laborer Mine: None Anesthesia: Epidural Delivery Type: @ 0145 Findings: Viable female infant, apgars 9/9, weight 7#11, 3475 grams Lacerations: 2nd degree perineal and right labial Intact placenta with 3 vessel cord. No nuchal cord, body cord or shoulder dystoc ia Estimated Blood Loss: 150 ml Complications: None Condition: Stable Description of Procedure: The patient is a 22 year old female who presented for IOL. She was admitted and informed consent was obtained. Her labor course was unremarkable. She progressed to complete dilatation and began to push. She was then set up for delivery. The infant's head was delivered atraumatically in the SOLEDAD position. Loose Nuchal cord was reduced prior to delivery of body. The shoulders and remainder of the infant's body were then delivered without difficulty. Upon delivery, the head was held below the level of the perineum and the mouth and nares were bulb suctioned. The cord was doubly clamped and cut by mother after 3 min delay and the was attended to by the pediatric staff on maternal abdomen. An intact placenta with 3-vessel cord delivered via Earle and there was found to be minimal bleeding.~ Vigorous fundal massage was performed and the fundus was found to be firm. IV oxytocin was given. Examination of the vagina and perineum revealed a 2nd degree perineal laceration and right labial laceration repaired in the usual fashion with 3-0 vicryl suture. Following the repair, sponge, instrument and needle counts were correct. Mom and baby were both in stable condition in the labor suite. Vitals - Labs Vital Signs - I&O Vital Signs Date Time Temp Pulse Resp B/P (MAP) Pulse Ox O2 Delivery O2 Flow Rate FiO2 04/25/22 00:30 82 136/82 (100) Room Air 04/25/22 00:15 80 131/79 (96) Room Air 04/25/22 00:00 75 133/82 (99) Room Air 04/24/22 23:45 81 140/89 (106) Room Air 04/24/22 23:30 82 102/71 (81) Room Air 04/24/22 23:15 74 111/63 (79) Room Air 04/24/22 23:00 70 101/56 (71) Room Air 04/24/22 22:45 75 18 104/57 (73) Room Air 04/24/22 22:30 82 20 133/80 (97) Room Air 04/24/22 22:15 89 125/90 (102) Room Air 04/24/22 22:00 80 125/70 (88) Room Air 04/24/22 21:45 75 130/64 (86) Room Air 04/24/22 21:30 74 127/75 (92) Room Air 04/24/22 21:15 86 22 121/75 (90) Room Air 04/24/22 21:00 84 122/78 (93) Room Air 04/24/22 20:45 83 125/73 (90) Room Air 04/24/22 20:30 82 123/76 (92) Room Air 04/24/22 20:15 86 128/79 (95) Room Air 04/24/22 20:00 82 122/76 (91) Room Air 04/24/22 19:45 36.1 80 20 127/77 (94) 100 Room Air 04/24/22 19:30 89 125/77 (93) 100 Room Air 04/24/22 19:15 76 129/76 (93) 98 Room Air 04/24/22 19:00 77 18 135/72 (93) 99 Room Air 04/24/22 18:45 83 18 132/67 (88) 100 Room Air 04/24/22 18:40 67 18 134/70 (91) 99 Room Air 04/24/22 18:36 77 18 137/77 (97) 100 Room Air 04/24/22 18:32 76 18 143/74 (97) 100 Room Air 04/24/22 18:30 81 18 129/88 (102) 100 Room Air 04/24/22 18:25 70 18 136/76 (96) 100 Room Air 04/24/22 18:20 76 18 142/78 (99) 100 Room Air 04/24/22 18:16 85 18 133/74 (93) 100 Room Air 04/24/22 18:12 78 18 129/67 (87) 100 Room Air 04/24/22 18:08 77 18 135/62 (86) 100 Room Air 04/24/22 18:04 81 18 122/69 (86) 98 Room Air 04/24/22 18:02 84 18 125/70 (88) 97 Room Air 04/24/22 18:00 80 18 126/68 (87) 97 Room Air 04/24/22 17:45 76 18 122/77 (92) 98 Room Air 04/24/22 17:30 70 18 138/78 (98) Room Air 04/24/22 17:15 71 18 132/74 (93) Room Air 04/24/22 17:00 36.6 88 18 131/97 (108) Room Air 04/24/22 16:45 76 18 114/62 (79) Room Air 04/24/22 16:15 71 18 127/85 (99) Room Air 04/24/22 16:05 69 18 108/59 (75) Room Air 04/24/22 15:45 78 18 124/74 (91) Room Air 04/24/22 15:30 82 18 139/86 (103) Room Air 04/24/22 15:15 78 18 128/81 (97) Room Air 04/24/22 15:00 76 18 130/82 (98) Room Air 04/24/22 14:55 66 18 130/75 (93) Room Air 04/24/22 14:30 75 18 103/59 (74) Room Air 04/24/22 14:15 68 18 116/60 (78) Room Air 04/24/22 14:00 36.5 71 18 107/58 (74) Room Air 04/24/22 13:45 75 18 133/76 (95) Room Air 04/24/22 13:35 74 18 139/78 (98) Room Air 04/24/22 13:15 79 18 125/79 (94) Room Air 04/24/22 13:00 78 18 131/81 (98) Room Air 04/24/22 12:45 75 18 137/80 (99) 98 Room Air 04/24/22 12:32 75 18 129/84 (99) 98 Room Air 04/24/22 12:15 36.4 78 20 140/91 (107) 98 Room Air 04/24/22 09:25 36.2 76 22 112/58 (76) 98 Room Air 04/24/22 03:34 36.1 82 22 128/62 (84) 98 Room Air I & O 04/25/22 07:00 Intake Total 3189 ml Balance 3189 ml Labs Microbiology 04/23/22 Urine Culture - Final, Complete Gram Pos Mixed Bacterial Shivani SILVIO SCHULTZ MD Apr 25, 2022 02:26
[2022-04-25] MEDS: ACETAMINOPHEN 500 MG TAB (TYLENOL) PO SCH ×4 (02:44→20:14)
[2022-04-25] MEDS: WITCH HAZEL(TUCKS) 40 EA JAR TOP PRN ×2 (02:45→19:36)
[2022-04-25] MEDS: BENZOCAINE/MENTHOL (DERMOPLAST) 56 ML CAN TP PRN (02:45)
[2022-04-25] MEDS: IBUPROFEN 600 MG (MOTRIN) TAB PO SCH ×4 (02:59→20:14)
[2022-04-25] MEDS ORDERED: CATHETER FLUSH 10 ML SYR IV SCH (06:00)
[2022-04-25] MEDS: PRENATAL VITAMIN 1 EA TAB PO SCH (07:52)
[2022-04-25] MEDS: DOCUSATE SODIUM 100 MG (COLACE) CAP PO SCH ×2 (09:02→20:14)
[2022-04-25] MEDS: CALCIUM CARBONATE 500 MG (TUMS) TAB.CHEW PO PRN (11:35)
[2022-04-26 01:56] VITALS: BP 112/59
[2022-04-26] MEDS: IBUPROFEN 600 MG (MOTRIN) TAB PO SCH ×4 (02:03→15:39)
[2022-04-26] MEDS: ACETAMINOPHEN 500 MG TAB (TYLENOL) PO SCH ×4 (02:04→15:39)
[2022-04-26 05:38] LABS: BASOPHILS # (AUTO) 0.1 10^3/uL (0.0-0.1); BASOPHILS % (AUTO) 1 % (0-10); EOSINOPHILS # (AUTO) 0.4 10^3/uL (0.0-0.3); EOSINOPHILS % (AUTO) 4 % (0-10); HEMATOCRIT 28 % (35-52); HEMOGLOBIN 9.7 g/dL (11.5-16.0); LYMPHOCYTES # (AUTO) 2.8 10^3/uL (1.0-4.0); LYMPHOCYTES % (AUTO) 32 % (12-44); MEAN CORPUSCULAR HEMOGLOBIN 31 pg (25-34); MEAN CORPUSCULAR HGB CONC 35 g/dL (32-36); MEAN CORPUSCULAR VOLUME 87 fL (80-99); MEAN PLATELET VOLUME 12.1 fL (9.0-12.2); MONOCYTES # (AUTO) 0.7 10^3/uL (0.0-1.0); MONOCYTES % (AUTO) 7 % (0-12); NEUTROPHILS # (AUTO) 4.9 10^3/uL (1.8-7.8); NEUTROPHILS % (AUTO) 56 % (42-75); PLATELET COUNT 163 10^3/uL (130-400); WHITE BLOOD COUNT 8.8 10^3/uL (4.3-11.0)
[2022-04-26] MEDS: CALCIUM CARBONATE 500 MG (TUMS) TAB.CHEW PO PRN (07:40)
[2022-04-26] MEDS: PRENATAL VITAMIN 1 EA TAB PO SCH (07:40)
[2022-04-26 07:47] VITALS: BP 115/64
[2022-04-26] MEDS: DOCUSATE SODIUM 100 MG (COLACE) CAP PO SCH ×2 (09:03→13:29)
[2022-04-26] MEDS ORDERED: FERR325T18 PO (09:05)
[2022-04-26] MEDS ORDERED: IBUP-844 PO (09:05)
[2022-04-26] MEDS ORDERED: DOCU100C37 PO (09:05)
--- NOTE | 2022-04-26 12:01 | Discharge Summary ---
SANDI TEJEDANAReed Goodrich 04/26/22 1151: Discharge Summary Hospital Course Problems Reviewed?: Yes Problems/Diagnosis: (1) Vaginal delivery Status: Acute Assessment & Plan: Routine care. Monitor for signs of fever/infection. Follow up with PCP within 6 week of delivery. (2) Anemia Status: Acute Assessment & Plan: Hgb on 04/26 is 9.7. Admin iron supplementation. Monitor for dizziness, fatigue, altered cognition, depressive symptoms. Qualifiers: Qualified Codes: D50.8 - Other iron deficiency anemias (3) History of seizure Status: Chronic Assessment & Plan: Continue home medication Hospital Course Date of Admission: Apr 23, 2022 at 19:41 Admission Diagnosis : Family Physician/Provider: Melanie Jenkins MD Date of Discharge: 04/26/22 Discharge Diagnosis: Spontaneous vaginal delivery at 39 wga Hospital Course: See Problem List Labs and Pending Lab Test: Laboratory Tests 04/26/22 05:08: White Blood Count 8.8, Red Blood Count 3.18L, Hemoglobin 9.7#L, Hematocrit 28L, Mean Corpuscular Volume 87, Mean Corpuscular Hemoglobin 31, Mean Corpuscular Hemoglobin Concent 35, Red Cell Distribution Width 13.1, Platelet Count 163, Mean Platelet Volume 12.1, Immature Granulocyte % (Auto) 0, Neutrophils (%) (Auto) 56, Lymphocytes (%) (Auto) 32, Monocytes (%) (Auto) 7, Eosinophils (%) (Auto) 4, Basophils (%) (Auto) 1, Neutrophils # (Auto) 4.9, Lymphocytes # (Auto) 2.8, Monocytes # (Auto) 0.7, Eosinophils # (Auto) 0.4H, Basophils # (Auto) 0.1, Immature Granulocyte # (Auto) 0.0 Microbiology 04/23/22 Urine Culture - Final, Complete Gram Pos Mixed Bacterial Shivani Home Meds Active Ferrous Sulfate 325 Mg (65 Mg Iron) Tablet 325 Mg PO DAILY Docusate Sodium 100 Mg Capsule 100 Mg PO BID Ibu (Ibuprofen) 600 Mg Tablet 600 Mg PO Q6H Keppra (Levetiracetam) 500 Mg Tablet 500 Mg PO DAILY Reported Zoloft (Sertraline HCl) 20 Mg/Ml Oral.conc 20 Mg PO DAILY Hydroxyzine HCl 10 Mg Tablet 10 Mg PO DAILY Aspirin 81 Mg Tab.chew 81 Mg PO DAILY Folic Acid 20 Mg Capsule 20 Mg PO DAILY Prenatabs Rx Tablet ( Vit #76/Iron,Carb/FA) 29 Mg Iron-1 Mg Tablet 1 Each PO DAILY 30 Days Assessment/Pt DC Instructions Follow up with PCP appointment within 6 weeks of delivery. Continue home medications including iron supplementation. Discharge Diet: No Restrictions Activity as Tolerated: Yes Discharge Physical Examination Allergies: Coded Allergies: Penicillins (Verified Allergy, Unknown, 01/28/22) clindamycin (Verified Allergy, Unknown, 01/28/22) latex (Verified Allergy, Unknown, Hives, 03/17/22) General Appearance: No Apparent Distress, WD/WN HEENT: PERRL/EOMI Respiratory: Chest Non Tender, Lungs Clear, Normal Breath Sounds, No Accessory Muscle Use, No Respiratory Distress Cardiovascular: Regular Rate, Rhythm Gastrointestinal: Normal Bowel Sounds, Non Tender, Soft Extremity: Normal Range of Motion, Non Tender, Swelling (pateient states current swelling is baseline for her) Skin: Normal Color, Warm/Dry Neurologic/Psychiatric: Alert, Oriented x3 Discharge Summary Date of Admission Apr 23, 2022 at 19:41 Date of Discharge Discharge Date: Apr 26, 2022 Supervisory-Addendum Brief Verification & Attestation Participated in pt care: history, physical Personally performed: supervision of care Care discussed with: Medical Student Procedures: supervised CELSA WATKINS MD 04/26/22 1551: Discharge Summary Discharge Physical Examination Allergies: Coded Allergies: Penicillins (Verified Allergy, Unknown, 01/28/22) clindamycin (Verified Allergy, Unknown, 01/28/22) latex (Verified Allergy, Unknown, Hives, 03/17/22) Supervisory-Addendum Brief Verification & Attestation I personally saw and examined patient and did my own history and physical exam which confirmed the findings documented by the medical student. I directed the plan of care as documented by the medical student. CONNOR TEJEDA Apr 26, 2022 11:51 CELSA WATKINS MD Apr 26, 2022 15:51
[2022-04-26] MEDS: BENZOCAINE/MENTHOL (DERMOPLAST) 56 ML CAN TP PRN (13:32)
[2022-04-26 14:37] VITALS: BP 118/72
[2022-04-26 17:20] VITALS: BP 115/64
[2022-04-27] MEDS ORDERED: FERROUS SULF 325 MG (IRON) TAB PO SCH (07:00)
== END 2022-04-26 17:22 | disposition home or self-care (01) | DRG 806 ==
LOC: LDRP 19:41
PROVIDERS: ADMIT Family Medicine; ATTEND Family Medicine
PROC: 10E0XZZ Delivery of Products of Conception, External Approach (ICD-10-PCS; principal; 2022-04-25)
PROC: 0KQM0ZZ Repair Perineum Muscle, Open Approach (ICD-10-PCS; 2022-04-25)
PROC: 10907ZC Drainage of Amniotic Fluid, Therapeutic from Products of Conception, Via Natural or Artificial Opening (ICD-10-PCS; 2022-04-25)
PROC: 3E033VJ Introduction of Other Hormone into Peripheral Vein, Percutaneous Approach (ICD-10-PCS; 2022-04-25)
DX: O13.4 Gestational [pregnancy-induced] hypertension without significant proteinuria, complicating childbirth (principal); O99.354 Diseases of the nervous system complicating childbirth; Z37.0 Single live birth; Z3A.39 39 weeks gestation of pregnancy; G40.909 Epilepsy, unspecified, not intractable, without status epilepticus; O70.1 Second degree perineal laceration during delivery; O90.81 Anemia of the puerperium; D50.8 Other iron deficiency anemias
CPT/HCPCS: 36415; 80053; 81000; 82570; 84156; 85025; 86780; 86850; 86900; 86901; 87088

== ENCOUNTER 2022-05-03 11:46 | Emergency (ER) | payer MEDICAID ==
[~2022-05-03 11:46] MED LIST changes: +DOCU100C37 PO; +FERR325T18 PO; +IBUP-844 PO
[2022-05-03 11:56] LABS: BILIRUBIN,URINE NEGATIVE (NEGATIVE); GLUCOSE, URINE (UA) NEGATIVE (NEGATIVE); KETONES,URINE NEGATIVE (NEGATIVE); LEUKOCYTE ESTERASE ,URINE 3+ (NEGATIVE); NITRITE,URINE NEGATIVE (NEGATIVE); PROTEIN,URINE 1+ (NEGATIVE)
[2022-05-03 12:03] LABS: BACTERIA,URINE NEGATIVE /HPF; CLARITY,URINE CLOUDY; COLOR,URINE RED; RBC,URINE TNTC /HPF
[2022-05-03] MEDS ORDERED: PHEN-639 PO (12:22)
[2022-05-03] MEDS ORDERED: CEPH500T PO (12:22)
--- NOTE | 2022-05-03 12:22 | ED GU-Female ---
General Chief Complaint: - Reproductive Stated Complaint: URINARY PAIN Nursing Triage Note: PT REPORTS URINARY PAIN SINCE ABOUT 0300. PT IS ONE WEEK POST . Source: patient Exam Limitations: no limitations History of Present Illness Date Seen by Provider: May 03, 2022 Time Seen by Provider: 12:06 Initial Comments 22-year-old female patient with normal vaginal delivery on 04/25/2022 presented POV with complaining of burning during urination since this morning. Patient complaining of urinary dysuria and frequency without fever and chills, nausea and vomiting, abdominal pain, flank pain. Patient currently has vaginal bleeding and denies unusual pain on episiotomy area. Patient is breast- feeding her baby. Timing/Duration: this morning Severity/Quality: moderate Allergies and Home Medications Allergies Coded Allergies: Penicillins (Verified Allergy, Unknown, 01/28/22) clindamycin (Verified Allergy, Unknown, 01/28/22) latex (Verified Allergy, Unknown, Hives, 03/17/22) Patient Home Medication List Home Medication List Reviewed: Yes Aspirin (Aspirin) 81 Mg Tab.chew, 81 MG PO DAILY, (Reported) Entered as Reported by: ANGELLA CONWAY on 03/17/22 1504 Cephalexin (Cephalexin) 500 Mg Tablet, 500 MG PO TID Prescribed by: Brissa bahena on 05/03/22 1222 Docusate Sodium (Docusate Sodium) 100 Mg Capsule, 100 MG PO BID Prescribed by: CELSA WATKINS on 04/26/22 0905 Ferrous Sulfate (Ferrous Sulfate) 325 Mg (65 Mg Iron) Tablet, 325 MG PO DAILY Prescribed by: CELSA WATKINS on 04/26/22 0905 Folic Acid (Folic Acid) 20 Mg Capsule, 20 MG PO DAILY, (Reported) Entered as Reported by: ANGELLA CONWAY on 03/17/22 1504 Hydroxyzine HCl (Hydroxyzine HCl) 10 Mg Tablet, 10 MG PO DAILY, (Reported) Entered as Reported by: ANGELLA CONWAY on 03/17/22 1504 Ibuprofen (Ibu) 600 Mg Tablet, 600 MG PO Q6H Prescribed by: CELSA WATKINS on 04/26/22 0905 Levetiracetam (Keppra) 500 Mg Tablet, 500 MG PO DAILY Prescribed by: CELSA WATKINS on 03/29/22 1129 Phenazopyridine HCl (Pyridium) 100 Mg Tablet, 100 MG PO TID Prescribed by: Brissa bahena on 05/03/22 1222 Vit #76/Iron,Carb/FA (Prenatabs Rx Tablet) 29 Mg Iron-1 Mg Tablet, 1 EACH PO DAILY, (Reported) Entered as Reported by: PAOLO KAMARA on 02/07/22 2318 Sertraline HCl (Zoloft) 20 Mg/Ml Oral.conc, 20 MG PO DAILY, (Reported) Entered as Reported by: ANGELLA CONWAY on 03/17/22 1504 Review of Systems Review of Systems Constitutional: see HPI EENTM: see HPI Respiratory: see HPI Cardiovascular: see HPI Gastrointestinal: see HPI Genitourinary: see HPI Musculoskeletal: see HPI Skin: see HPI Psychiatric/Neurological: See HPI Endocrine: See HPI Hematologic/Lymphatic: See HPI All Other Systemes Reviewed Negative Unless Noted: Yes Past Vxzhyar-Ntlqcp-Louqob Hx Patient Social History Tobacco Use?: No Use of E-Cig and/or Vaping dev: No Substance use?: No Alcohol Use?: No Pt feels they are or have been: No Immunizations Up To Date Tetanus Booster (TDap): Less than 5yrs Past Medical History Surgery/Hospitalization HX: asthma, seizures Adenoidectomy, Tonsillectomy Seizure Disorder Physical Exam Vital Signs Vital Signs - First Documented 05/03/22 11:55 Temp 35.8 Pulse 103 Resp 16 B/P (MAP) 119/83 (95) Pulse Ox 100 O2 Delivery Room Air Capillary Refill : Less Than 3 Seconds Height, Weight, BMI Height: '" Weight: lbs. oz. kg; 321.40 BMI Method: General Appearance: WD/WN, no apparent distress, obese HEENT: PERRL/EOMI Neck: non-tender Cardiovascular: regular rate, rhythm, no edema, no gallop, no JVD Respiratory: chest non-tender, lungs clear, normal breath sounds, no respiratory distress, no accessory muscle use Gastrointestinal: normal bowel sounds, non tender, soft, no organomegaly Genital/Rectal: other (Inspection of external genital area and present of laborer car barn Angella RN showed mild vaginal bleeding, well-healed episiotomy area, no sign of secondary infection) Back: normal inspection, no CVA tenderness Extremities: normal range of motion Neurologic/Psychiatric: alert, normal mood/affect, oriented x 3 Skin: normal color, warm/dry Progress/Results/Core Measures Suspected Sepsis SIRS Temperature: Pulse: 103 Respiratory Rate: 16 Blood Pressure 119 /83 Mean: 95 Results/Orders Lab Results Laboratory Tests Test 05/03/22 11:49 Range/Units Urine Color RED H Urine Clarity CLOUDY Urine pH 7.0 5-9 Urine Specific [place] 1.020 1.016-1.022 Urine Protein 1+ H NEGATIVE Urine Glucose (UA) NEGATIVE NEGATIVE Urine Ketones NEGATIVE NEGATIVE Urine Nitrite NEGATIVE NEGATIVE Urine Bilirubin NEGATIVE NEGATIVE Urine Urobilinogen 0.2 < = 1.0 MG/DL Urine Leukocyte Esterase 3+ H NEGATIVE Urine RBC (Auto) 3+ H NEGATIVE Urine RBC TNTC H /HPF Urine WBC NONE /HPF Urine Crystals NONE /LPF Urine Bacteria NEGATIVE /HPF Urine Casts NONE /LPF Urine Mucus NEGATIVE /LPF Urine Culture Indicated YES My Orders Orders - BRISSA BAHENA MD Urinalysis (05/03/22 11:50) Urine Culture (05/03/22 11:49) Vital Signs/I&O 05/03/22 05/03/22 11:55 12:44 Temp 35.8 35.8 Pulse 103 103 Resp 16 16 B/P (MAP) 119/83 (95) 119/83 Pulse Ox 100 100 O2 Delivery Room Air Room Air Capillary Refill : Less Than 3 Seconds Blood Pressure Mean: 95 Progress Note : Progress Note Evaluation of patient in ER showed 22-year-old female patient with 1 week and complaining of dysuria since this morning. Patient had unremarkable physical exam and well-healed episiotomy wound. Urine showed 3+ leukocyte Estrace. Patient advised to increase fluid intake and take shower twice a day and wash her genital area frequently. Prescription for Keflex and Pyridium was given. Patient advised to follow-up with her primary care physician/COMPUTER METEOROLOGIST in 3 to 5 days and return to ER as needed. Departure Impression Primary Impression: Dysuria Disposition: 01 HOME, SELF-CARE Condition: Stable Departure-Patient Inst. Decision time for Depature: 12:20 Referrals: SILVIO SCHULTZ MD (PCP) Primary Care Physician Patient Instructions: Dysuria, Adult (DC) Add. Discharge Instructions: Drink plenty of liquids Follow-up with your primary care physician 3 to 5 days Return to ER as needed All discharge instructions reviewed with patient and/or family. Voiced understanding. Scripts Phenazopyridine HCl (Pyridium) 100 Mg Tablet 100 MG PO TID for dysuria, #10 TAB Prov: BRISSA BAHENA MD 05/03/22 Cephalexin (Cephalexin) 500 Mg Tablet 500 MG PO TID, #15 TAB Prov: BRISSA BAHENA MD 05/03/22 BRISSA BAHENA MD May 03, 2022 12:22
[2022-05-03 12:44] VITALS: BP 119/83
== END 2022-05-03 12:57 | disposition home or self-care (01) ==
LOC: EDUNIT# 11:46 → ER FS 11:47
DX: O90.89 Other complications of the puerperium, not elsewhere classified (principal); R30.0 Dysuria; Z91.040 Latex allergy status
CPT/HCPCS: 81000; 87088; 99284

== ENCOUNTER 2022-08-08 12:27 | Emergency (ER) | payer MEDICAID ==
[~2022-08-08] VITALS: Ht 187.9 cm; Wt 179.0 kg
[~2022-08-08 12:27] MED LIST changes: +PHEN-639 PO
--- NOTE | 2022-08-08 12:58 | ED Back Pain ---
General Chief Complaint: Back Problems Stated Complaint: SEIZURE; RIB PAIN; 12W Source of Information: Patient, EMS (ANDRES KIRBY MD) History of Present Illness Date Seen by Provider: Aug 08, 2022 Time Seen by Provider: 12:27 Initial Comments 22 yo female SAB3 with last menstrual period sometime in May and SHANTELL March 24. She reports that she is about 12 weeks and has first appointment with Dr. Schultz on Aug.18 for this . She had just delivered her last baby in April and so she has a 4 month old child at home. She has a medical history complicated with obesity and seizures. She is on Keppra for her seizures. She reports having trouble controlling her blood pressure with her recent and was on seizure medicine and blood pressure medicine for the end of her . She denies missing doses of Keppra. She states at 1030 she was at home and had a seizure that made her fall out of bed on to the concrete floor. When she woke up on the floor she got in touch with her and told him he had to come help her get off the floor. He came home and she reports he lifted her up off the floor and got her to a recliner. He told her to stay there and wait for him to get off work at 1330 and he would come back. She had to get up to use the bathroom and when she tried to get up out of the chair she fell again because she states her legs went weak and numb and she fell onto her back. She is complaining of pain all over her body and especially in her low back. She has had no loss of bowel or bladder control but states she has numbness into her legs and it is worse with her trying to stand. She tried standing up from chair after her helped her off the floor and she fell again because her legs went numb and gave out. She called EMS because she could not get up and walk with her pain. EMS lifted her and had her pivot to be able to get on to the cot. She feels like she needs to urinate now but has been holding it since she can not get up to the bathroom. She is moving her legs but says they feel numb, especially when she tries to stand. On arrival to the ED she was able to move over from the EMS cot by moving her legs and rolled onto the ED bed. She reported this caused her more pain and she stayed laying on her side once she got on the ED bed. Location: Lumbar Spine Timing/Duration: 1-3 Hours Severity: Severe Pain/Injury Location: Back, Chest, Lower Extremity Radiation: Buttocks, Feet, Lower Legs, Upper Legs Method of Injury: Fall Modifying Factors: Worse With Movement Associated Symptoms: muscle spasms; No fever, No weakness; numbness in legs/feet (when she moves and has increased back pain), tingling in legs/feet (when she moves and has increased back pain), lower back pain; No loss of bladder control, No loss of bowel control (ANDRES KIRBY MD) Allergies and Home Medications Allergies Coded Allergies: Penicillins (Verified Allergy, Unknown, 01/28/22) clindamycin (Verified Allergy, Unknown, 01/28/22) latex (Verified Allergy, Unknown, Hives, 03/17/22) Patient Home Medication List Home Medication List Reviewed: Yes (ANDRES KIRBY MD) Aspirin (Aspirin) 81 Mg Tab.chew, 81 MG PO DAILY, (Reported) Entered as Reported by: ORTIZ CONWAY on 03/17/22 1504 Cephalexin (Cephalexin) 500 Mg Tablet, 500 MG PO TID Prescribed by: Brissa guy on 05/03/22 1222 Docusate Sodium (Docusate Sodium) 100 Mg Capsule, 100 MG PO BID Prescribed by: CELSA WATKINS on 04/26/22 0905 Ferrous Sulfate (Ferrous Sulfate) 325 Mg (65 Mg Iron) Tablet, 325 MG PO DAILY Prescribed by: CELSA WATKINS on 04/26/22 09 Folic Acid (Folic Acid) 20 Mg Capsule, 20 MG PO DAILY, (Reported) Entered as Reported by: ORTIZ CONWAY on 03/17/22 1504 Hydroxyzine HCl (Hydroxyzine HCl) 10 Mg Tablet, 10 MG PO DAILY, (Reported) Entered as Reported by: ORTIZ CONWAY on 03/17/22 1504 Ibuprofen (Ibu) 600 Mg Tablet, 600 MG PO Q6H Prescribed by: CELSA WATKINS on 04/26/22 0905 Levetiracetam (Keppra) 500 Mg Tablet, 500 MG PO DAILY Prescribed by: CELSA WATKINS on 03/29/22 1129 Phenazopyridine HCl (Pyridium) 100 Mg Tablet, 100 MG PO TID Prescribed by: Brissa guy on 05/03/22 1222 Vit #76/Iron,Carb/FA (Prenatabs Rx Tablet) 29 Mg Iron-1 Mg Tablet, 1 EACH PO DAILY, (Reported) Entered as Reported by: PAOLO KAMARA on 02/07/22 2318 Sertraline HCl (Zoloft) 20 Mg/Ml Oral.conc, 20 MG PO DAILY, (Reported) Entered as Reported by: ORTIZ CONWAY on 03/17/22 1504 Review of Systems Constitutional: No chills, No dizziness, No fever EENTM: no symptoms reported Respiratory: no symptoms reported Cardiovascular: no symptoms reported Gastrointestinal: no symptoms reported Genitourinary: No dysuria : Yes Control/STD Prophylaxis: None Musculoskeletal: back pain (complains of severe low back pain and rib pain with pain and numbness into her legs with movement. ) Skin: No change in color, No rash Psychiatric/Neurological: See HPI, Headache, Numbness (numbness and tingling with decreased sensation into bilateral legs with movement of her pelvis and low back) (ANDRES KIRBY MD) Past Hdmcstw-Gusxgr-Ljtkrt Hx Immunizations Up To Date Tetanus Booster (TDap): Less than 5yrs (ANDRES KIRBY MD) Past Medical History Surgery/Hospitalization HX: asthma, seizures Adenoidectomy, Tonsillectomy Seizure Disorder (ANDRES KIRBY MD) Physical Exam Vital Signs Vital Signs - First Documented 08/08/22 12:30 Temp 36.9 Pulse 77 Resp 16 B/P (MAP) 116/58 (77) Pulse Ox 99 O2 Delivery Room Air (DANIELLE RUBI MD) Vital Signs Capillary Refill : (ANDRES KIRBY MD) Height, Weight, BMI Height: '" Weight: lbs. oz. kg; 321.40 BMI Method: General Appearance: Anxious, Obese HEENT: PERRL/EOMI Neck: Full Range of Motion, Normal Inspection, Non Tender, Supple Cardiovascular: Regular Rate, Rhythm, Normal Peripheral Pulses Respiratory: No Chest Non Tender (reports tenderness with palpation on lower chest wall bilaterally. no crepitus/step off); Lungs Clear, Normal Breath Sounds, No Accessory Muscle Use, No Respiratory Distress Gastrointestinal: Normal Bowel Sounds, No Pulsatile Mass, Non Tender, Soft, Other (unable to obtain FHT with doppler) Back: Vertebral Tenderness (lumbar spine tender to palpation without step off or crepitus) Extremity: Normal Capillary Refill, No Pedal Edema Neurologic/Psychiatric: Alert, Oriented x3, branch office manager II-XII Norm as Tested Skin: Normal Color, Warm/Dry (ANDRES KIRBY MD) Progress/Results/Core Measures Results/Orders Lab Results Laboratory Tests Test 08/08/22 13:11 08/08/22 15:15 Range/Units White Blood Count 8.7 4.3-11.0 10^3/uL Red Blood Count 4.85 3.80-5.11 10^6/uL Hemoglobin 13.4 11.5-16.0 g/dL Hematocrit 38 35-52 % Mean Corpuscular Volume 79 L 80-99 fL Mean Corpuscular Hemoglobin 28 25-34 pg Mean Corpuscular Hemoglobin Concent 35 32-36 g/dL Red Cell Distribution Width 13.7 10.0-14.5 % Platelet Count 246 130-400 10^3/uL Mean Platelet Volume 10.5 9.0-12.2 fL Immature Granulocyte % (Auto) 0 % Neutrophils (%) (Auto) 64 42-75 % Lymphocytes (%) (Auto) 27 12-44 % Monocytes (%) (Auto) 6 0-12 % Eosinophils (%) (Auto) 3 0-10 % Basophils (%) (Auto) 1 0-10 % Neutrophils # (Auto) 5.5 1.8-7.8 10^3/uL Lymphocytes # (Auto) 2.3 1.0-4.0 10^3/uL Monocytes # (Auto) 0.5 0.0-1.0 10^3/uL Eosinophils # (Auto) 0.2 0.0-0.3 10^3/uL Basophils # (Auto) 0.1 0.0-0.1 10^3/uL Immature Granulocyte # (Auto) 0.0 0.0-0.1 10^3/uL Sodium Level 135 135-145 MMOL/L Potassium Level 4.1 3.6-5.0 MMOL/L Chloride Level 101 98-107 MMOL/L Carbon Dioxide Level 22 21-32 MMOL/L Anion Gap 12 5-14 MMOL/L Blood Urea Nitrogen 11 7-18 MG/DL Creatinine 0.74 0.60-1.30 MG/DL Estimat Glomerular Filtration Rate 117 BUN/Creatinine Ratio 15 Glucose Level 89 70-105 MG/DL Calcium Level 9.6 8.5-10.1 MG/DL Corrected Calcium 9.4 8.5-10.1 MG/DL Magnesium Level 1.8 1.6-2.4 MG/DL Total Bilirubin 0.5 0.1-1.0 MG/DL Aspartate Amino Transf (AST/SGOT) 33 5-34 U/L Alanine Aminotransferase (ALT/SGPT) 59 H 0-55 U/L Alkaline Phosphatase 99 40-136 U/L Total Protein 7.0 6.4-8.2 GM/DL Albumin 4.2 3.2-4.5 GM/DL Human Chorionic Gonadotropin, Quant 04112 H <5 MIU/ML Urine Color YELLOW Urine Clarity CLEAR Urine pH 6.0 5-9 Urine Specific [place] 1.020 1.016-1.022 Urine Protein NEGATIVE NEGATIVE Urine Glucose (UA) NEGATIVE NEGATIVE Urine Ketones NEGATIVE NEGATIVE Urine Nitrite NEGATIVE NEGATIVE Urine Bilirubin NEGATIVE NEGATIVE Urine Urobilinogen 0.2 < = 1.0 MG/DL Urine Leukocyte Esterase NEGATIVE NEGATIVE Urine RBC (Auto) NEGATIVE NEGATIVE Urine RBC NONE /HPF Urine WBC NONE /HPF Urine Squamous Epithelial Cells RARE /HPF Urine Crystals NONE /LPF Urine Bacteria NEGATIVE /HPF Urine Casts PRESENT /LPF Urine Hyaline Casts RARE /LPF Urine Mucus NEGATIVE /LPF Urine Culture Indicated NO (DANIELLE RUBI MD) My Orders Orders - DANIELLE RUBI MD Rucker Cath (08/08/22 14:29) Levetiracetam Injection (Keppra Injectio (08/08/22 14:29) Morphine Injection (Morphine Injection (08/08/22 17:08) Lactated Ringers (Lr 1000 Ml Iv Solution (08/08/22 18:30) Morphine Injection (Morphine Injection (08/08/22 18:20) (DANIELLE RUBI MD) Medications Given in ED Current Medications Medications Dose Ordered Sig/Alexis Route Start Time Stop Time Status Last Admin Dose Admin Lactated Ringer's 1,000 ml @ 0 mls/hr Q0M ONCE IV 08/08/22 18:30 08/08/22 18:31 DC 08/08/22 18:48 0 MLS/HR (DANIELLE RUBI MD) Vital Signs/I&O 08/08/22 08/08/22 08/08/22 08/08/22 12:30 13:39 14:00 20:39 Temp 36.9 36.9 Pulse 77 75 80 80 Resp 16 16 18 18 B/P (MAP) 116/58 (77) 114/71 (85) 130/94 (106) 130/94 Pulse Ox 99 98 100 100 O2 Delivery Room Air Room Air Room Air Room Air 08/09/22 00:00 Intake Total 105 ml Balance 105 ml (DANIELLE RUBI MD) Progress Progress Note : Progress Note Potential severe diagnosis of spinal cord compression, vertebral compression fracture, cauda equina, electrolyte abnormalities. I ordered basic labs of CBC, CMP, UA and will order heart tones and quantitative HCG. Patient has ability to move her legs but complains of numbness and tingling in both legs when she moves them. She has pain radiating from her low back down both legs. She has weakness when she tries to move using her legs. She states that she cannot stand because of the numbness and weakness that goes into her legs when she tries to stand. This is all been since she fell out of bed with seizure. She complains of hurting all over. However with her being approximately 12 weeks and having low back pain will discuss with her about CT scan that would have more radiation but evaluate her spine and pelvis better looking for acute fractures versus MRI that would look better at the ne rves and spinal cord. There is increased radiation exposure to the fetus with the CT but it would be better modality to evaluate for acute fractures. Patient had refused the CT scan out of concern for miscarriage or developing cancer with the fetus.Will call [facility] to see if MRI available for possible ED to ED transfer. [phone] Caraballo as my call schedule had him for OB coverage with [facility] and patient plans to follow up with Dr. Schultz to establish care for this on Aug 18. Left voice message asking to have him call me back. 1242 call placed to [facility] ED to discuss with Dr. Rubi about the patient and get his input. He was on the phone about another patient. [address] Rubi the patient and presentation and although she can move her legs and has not lost control of her bowels or bladder she has radiculopathy and numbness/tingling into legs especially with movement. He advised to discuss with patient option of CT versus MRI as CT would still be the recommended modality for trauma evaluation of a patient. 1309 I discussed this with the patient again and she refused CT and stated she wanted to go to [place] to see about MRI. After EMS pulled out with the patient I got a call from Dr. Rubi that their weight limit was 300 pounds for their MRI and our chart had 380 pounds for her weight. I called EMS and informed them and they were going to come back to ED so we could find a facility with larger capacity MRI. However, when they talked to her about what they were doing and why they were going to come back to [place], the patient said she weighs about 280 pounds and not 380. She told them the higher weight was before she delivered her baby in April and she has come down since then. Bank Examiner Peter Mcdermott called me back to let me know they were going on to [place] since pt states she is [address]. [address] Rubi and he will have patient get a weight as soon as she arrives on a bed scale to verify that she can get MRI at their facility and not need transfer to center with larger capacity MRI. (ANDRES KIRBY MD) Progress Note #1: Time: 13:58 Progress Note Case was reviewed with Dr. Kirby regarding opportunity for MRI evaluation in the [place] ER. Dr. Kirby discussed CT scan versus MRI with the patient, and patient declined CT scan. She preferred to have MRI. There was question about patient's weight as the MRI machine in [place] has a 300 pound maximum weight limit. Patient could not be weighed in [place] as she was unable to stand. Her stated weight was 280 pounds. She was transferred to [place] with the understanding that MRI may not be possible if she exceeds the 300 pound weight limit or girth capacity of the MRI machine. I have discussed with Dr. Pina. Patient will need to waive the liability as there are no specific studies indicating known safety of MRI in first trimester. I will confirm patient's desires upon arrival to the ER and we will obtain a weight promptly in a scale bed. Patient has not yet arrived. Progress Note #2: Time: 17:56 Progress Note Care of this patient is being transitioned to Dr. Pena while awaiting transfer. Unfortunately, the EMS transfer crew is on a long distance transfer and will not be back for a few hours. Patient complained of rebounding pain and was given an additional morphine 4 mg dose. On my evaluation she appears to have weakness in both lower extremities equally. It is unclear whether this is true weakness or limited effort secondary to pain. She complains of pain from the lower thoracic spine down through the lumbar spine. She states this pain shoots up to her neck when she tries to move. She normally takes Keppra 500 mg at noon. She has not yet had her dose today. Keppra 500 mg IV was administered in the ER. Patient retains sensation in her lower extremities but she states it feels numb. She also retains movement of her feet. It was noted that her beta hCG level was only 25,600 suggesting that she has not yet 12 weeks. She reports LMP was May 13 but she has irregular menstrual cycles and just had a baby in April. Since patient exceeds MRI weight limits here, we are working on transfer. She was excepted for transfer to the [facility] emergency room but we are awaiting EMS availability. Kandi and patient were both updated with the status. Rucker catheter has been placed. Patient elaborated on her fall stating that she does not recall the actual fall out of bed because it was related to seizure. Her came home and helped her get into a recliner. However, she was unable to get up out of the recliner due to pain with movement and weakness in her legs. When trying to get up, she fell again on her back. She did not attempt to get up, and EMS was summoned to the home. Progress Note #3: Time: 18:21 Progress Note Patient reports pain is not adequately controlled despite recent morphine dose. An additional morphine 5 mg dose is being given now. Patient asked about eating and drinking. We will keep her n.p.o. until we are sure she does not have a surgical trauma. I have ordered a liter of IV fluid for hydration. Dr. Pena was updated. (DANIELLE RUBI MD) Departure Impression Primary Impression: Low back pain during in first trimester Additional Impressions: Fall from bed, initial encounter Seizure disorder Lumbar back pain with radiculopathy affecting left lower extremity Lumbar back pain with radiculopathy affecting right lower extremity Numbness and tingling of both legs Disposition: 02 XFER SHT-TRM HOSP Condition: Stable Transfer Transfer Reason: Exceeds level of care Time Spoke to Accepting Phy: 15:20 Transfer Progress Notes Transfer accepted by Dr. Parks at the [facility] ER. Transfer Time: 20:39 Transfer Facility: [facility] Method of Transfer: EMS (DANIELLE RUBI MD) Departure-Patient Inst. Referrals: SILVIO SCHULTZ MD (PCP) Primary Care Physician Copy Copies To 1: SILVIO SCHULTZ MD, MARC E MD Aug 08, 2022 12:57 DANIELLE RUBI MD Aug 08, 2022 14:01
[2022-08-08] MEDS ORDERED: morphine INJ 10 MG/ML 1ML (SYR OR VIAL) IVP STA ×3 (13:16→18:20)
[2022-08-08 13:20] LABS: BASOPHILS # (AUTO) 0.1 10^3/uL (0.0-0.1); BASOPHILS % (AUTO) 1 % (0-10); EOSINOPHILS # (AUTO) 0.2 10^3/uL (0.0-0.3); EOSINOPHILS % (AUTO) 3 % (0-10); HEMATOCRIT 38 % (35-52); HEMOGLOBIN 13.4 g/dL (11.5-16.0); LYMPHOCYTES # (AUTO) 2.3 10^3/uL (1.0-4.0); LYMPHOCYTES % (AUTO) 27 % (12-44); MEAN CORPUSCULAR HEMOGLOBIN 28 pg (25-34); MEAN CORPUSCULAR HGB CONC 35 g/dL (32-36); MEAN CORPUSCULAR VOLUME 79 fL (80-99); MEAN PLATELET VOLUME 10.5 fL (9.0-12.2); MONOCYTES # (AUTO) 0.5 10^3/uL (0.0-1.0); MONOCYTES % (AUTO) 6 % (0-12); NEUTROPHILS # (AUTO) 5.5 10^3/uL (1.8-7.8); NEUTROPHILS % (AUTO) 64 % (42-75); PLATELET COUNT 246 10^3/uL (130-400); WHITE BLOOD COUNT 8.7 10^3/uL (4.3-11.0)
[2022-08-08 13:41] LABS: BILIRUBIN,TOTAL 0.5 MG/DL (0.1-1.0); CALCIUM 9.6 MG/DL (8.5-10.1); CREATININE SERUM 0.74 MG/DL (0.60-1.30); MAGNESIUM 1.8 MG/DL (1.6-2.4); POTASSIUM 4.1 MMOL/L (3.6-5.0)
[2022-08-08 13:42] LABS: ALBUMIN 4.2 GM/DL (3.2-4.5)
[2022-08-08 17:17] LABS: BACTERIA,URINE NEGATIVE /HPF; BILIRUBIN,URINE NEGATIVE (NEGATIVE); CLARITY,URINE CLEAR; COLOR,URINE YELLOW; GLUCOSE, URINE (UA) NEGATIVE (NEGATIVE); HYALINE CASTS, URINE RARE /LPF; KETONES,URINE NEGATIVE (NEGATIVE); LEUKOCYTE ESTERASE ,URINE NEGATIVE (NEGATIVE); NITRITE,URINE NEGATIVE (NEGATIVE); PROTEIN,URINE NEGATIVE (NEGATIVE); SQUAMOUS EPITHELIAL CELL,UR RARE /HPF
[2022-08-08] MEDS ORDERED: LACTATED RINGERS 1,000 ML IV ONE (18:30)
[2022-08-08 20:39] VITALS: BP 130/94
== END 2022-08-08 20:39 | disposition still patient (30) ==
LOC: EDUNIT# 12:27 → ER 12:28
DX: O99.891 Other specified diseases and conditions complicating pregnancy (principal); M54.16 Radiculopathy, lumbar region; O99.351 Diseases of the nervous system complicating pregnancy, first trimester; G40.909 Epilepsy, unspecified, not intractable, without status epilepticus; O99.211 Obesity complicating pregnancy, first trimester; Z91.040 Latex allergy status; Z28.310 Unvaccinated for COVID-19; Z3A.12 12 weeks gestation of pregnancy; W06.XXXA Fall from bed, initial encounter
CPT/HCPCS: 36415; 51702; 80053; 81000; 83735; 84702; 85025